=== PATIENT | female | born 1955 | race Caucasian/White ===

== ENCOUNTER 2025-02-28 08:56 | Outpatient (CLI) | payer MEDICARE, MEDICAID, SELFPAY ==
[2025-02-28 09:19] LABS: Hematocrit 31.8 % (37.0-47.0); Hemoglobin 9.7 g/dL (12.2-16.2); Immature Granulocytes % 0.2 %; Mean Corpuscular HGB Conc 30.5 g/dL (31.8-35.4); Mean Corpuscular Hemoglobin 28.3 pg (27.0-31.2); Mean Corpuscular Volume 92.7 fl (81-99); Nucleated Red Blood Cells % 0 %; Platelet Count 68 K/mm3 (142-424); Red Blood Count 3.43 M/mm3 (4.20-5.40); Red Cell Distribution Width-SD 61.1 fL; White Blood Count 4.5 K/mm3 (4.8-10.8)
[2025-02-28 09:47] LABS: Albumin Level 3.1 g/dl (3.5-5.0); Chloride 102 mmol/L (98-107); Potassium 3.6 mmoL/L (3.5-5.1); Sodium 139 mmol/L (136-145)
[2025-02-28 09:49] LABS: Alanine Aminotransferase 16 U/L (12-78); Aspartate Amino Transferase 43 U/L (14-36); Blood Urea Nitrogen 15 mg/dl (7-17); Creatinine,Serum 0.70 mg/dl (0.52-1.04); Estimated Glomerular Filt Rate 82 ml/min (>60); GFR (African American) 100 ML/MIN (>60)
[2025-02-28 09:50] LABS: Albumin/Globulin Ratio 1.1 (1.1-1.8); Alkaline Phosphatase 140 U/L (38-126); Anion Gap 8.6 mEq/L (5-15); Bilirubin,Total 0.4 mg/dl (0.2-1.3); Calcium 8.7 mg/dl (8.4-10.2); Carbon Dioxide 32 mmol/L (22.0-30.0); Cholesterol 117 mg/dl (140-200); Globulin 2.9 g/dL (1.3-3.2); Glucose 96 mg/dl (74-100); HDL Cholesterol 68 mg/dl (40-60); Total Protein,Serum 6.0 g/dl (6.3-8.2); Triglycerides 43 mg/dl (30-150)
[2025-02-28 10:20] LABS: Thyroid Stimulating Hormone 3.93 uIU/mL (0.465-4.68)
== END 2025-02-28 23:59 | disposition home or self-care (01) ==
PROVIDERS: PCP Family Medicine; Visit Provider Family Medicine
DX: E03.9 Hypothyroidism, unspecified (principal); E44.0 Moderate protein-calorie malnutrition; D64.9 Anemia, unspecified; E78.5 Hyperlipidemia, unspecified; D50.9 Iron deficiency anemia, unspecified
CPT/HCPCS: 36415; 80053; 80061; 84443; 85025

== ENCOUNTER 2025-04-06 17:15 | Emergency (ER) | payer MEDICARE, MEDICAID, SELFPAY ==
[2025-04-06] VITALS (9 sets, daily range): BP systolic 137–162; BP diastolic 68–98; PULSE 71–84; RESP 18; TEMP 36.8; O2SAT 87–100; BMI 28.3
--- NOTE | 2025-04-06 17:34 | ED_ITS ---
<Statement entered by Shelby Veras DO - 04/07/25 00:31> I was consulted by the MARY, and we discussed the complexity of problems being addressed. I approve the treatment and management plan for this patient's care in the emergency department, thus performing a substantial portion of the medical decision making. Shelby Veras DO Discharge Plan Disposition Patient Disposition: Home, Self-Care Condition: Good Prescriptions Prescriptions: No Action albuterol sulfate 2.5 mg /3 mL (0.083 %) solution for nebulization 2.5 mg inhalation Q4H PRN (Reason: dysnpea) ketotifen fumarate 0.025 % (0.035 %) drops 1 drp ophthalmic (eye) QID meloxicam 15 mg tablet 15 mg PO DAILY ondansetron HCl 4 mg tablet 4 mg PO Q6H PRN (Reason: nausea and vomiting) calcium carbonate 600 mg calcium (1,500 mg) tablet 600 mg PO DAILY methocarbamol 750 mg tablet 750 mg PO TID PRN (Reason: muscle spasm) pantoprazole 40 mg tablet,delayed release (DR/EC) 40 mg PO DAILY ferrous sulfate 325 mg (65 mg iron) tablet 325 mg PO DAILY docusate sodium 100 mg capsule 100 mg PO BID montelukast 10 mg tablet 10 mg PO DAILY cholecalciferol (vitamin D3) 125 mcg (5,000 unit) capsule 125 mcg PO DAILY escitalopram oxalate 10 mg tablet 10 mg PO DAILY lactulose 10 gram/15 mL solution 30 ml PO DAILY PRN (Reason: constipation) acetaminophen 325 mg capsule 650 mg PO QID PRN (Reason: Pain (Scale Score 1-3)) budesonide-formoterol 160-4.5 mcg/actuation HFA aerosol inhaler 2 puff inhalation BID diclofenac sodium 1 % gel 2 g topical BID levothyroxine 75 mcg capsule 75 mcg PO DAILY melatonin 5 mg capsule 5 mg PO QHS mirabegron [Myrbetriq] 25 mg tablet extended release 24 hr 25 mg PO DAILY potassium chloride [K-Tab] 20 mEq tablet extended release 20 meq PO BID Movantik 25 mg tablet 25 mg PO DAILY Rx Instructions: must be taken on empty stomach; no food 1 hr after or 2-3 hrs before dose tiotropium-olodaterol 2.5-2.5 mcg/actuation mist 2 puff inhalation DAILY fluticasone propionate 50 mcg/actuation spray,suspension 1 spray intranasal DAILY Rx Instructions: administer into each nostril gabapentin 400 mg capsule 400 mg PO TID Qty: 90 5RF Eliquis 5 mg tablet 10 mg PO BID Qty: 30 0RF Quviviq 25 mg tablet 25 mg PO HS Qty: 30 5RF hydroxyzine HCl 25 mg tablet 25 mg PO TID Qty: 90 0RF oxycodone-acetaminophen 10-325 mg tablet 1 tab PO Q6H Qty: 120 0RF ketotifen fumarate 0.025 % (0.035 %) drops 1 drp Eye-Both QID diclofenac sodium 1 % gel 1 ea TOPICAL BID Referrals Follow up/Referrals: Darren Dickerson MD [Physician, Ear, Nose, Throat] - See instructions Provider,MD Mojgan [Referring, Medical] - See instructions Activity Restrictions/Add. Instructions Additional Instructions/Restrictions: You need to follow-up with the ENT doctor or a primary care provider in 2 to 3 days to remove the packing. Please call them to schedule an appointment you can have your nursing facility help with this. Return to the emergency department if you continue to have severe bleeding despite the packing. Follow-up on your ultrasound so that way if you do not have a deep vein clot you can discontinue your anticoagulation. Clinical Impressions Clinical Impression: Epistaxis Instructions Patient Instructions: DI for Nosebleed Print Language Print Language: Russian Discharge ED Provider: Shelby Veras General Adult HPI <REYNA Benedict - Last Filed: 04/06/25 19:01> General Chief complaint: Epistaxis Stated complaint: Nosebleed Time Seen by Provider: 04/06/25 17:18 Mode of Arrival: EMS Source of Information: Patient and EMS Description of Symptoms (Recalled from ER Triage Doc. by RN): angelica presents to ED via EMS for epistaxis that started around 1400 today. Patient started eliquis for DVT prophylaxis yesterday. History of Present Illness HPI narrative: 69-year-old female presents the emergency department via EMS from long term facility for epistaxis. Epistaxis started at 1400 today, cannot get controlled. Patient upon arrival is on 2 to 3 L nasal cannula, which is chronic for her, no epistaxis currently at the bedside per my examination. Patient of note, and upon after nursing, chart review patient was recently started on Eliquis therapy for DVT, noticed some left lower extremity swelling and pain with difficulty ambulating for the last 2 days, started Eliquis yesterday concern for DVT, had outpatient duplex ultrasound to rule out DVT, however radiology report is not available for my direct interrogation. Patient denies any trauma or injury per history, denies any fever chills cough, congestion, denies any chest pain, does endorse some worsening shortness of breath especially with exertion over the last couple of days, denies any abdominal pain, does have nausea, denies any vomiting, denies any constipation or diarrhea, denies urinary type symptomatology, patient is a former smoker, denies any other alcohol or drug use, other past medical history is consistent with HFpEF, CAD, history of cervico, thoraco lumbar fusion, OAB, history of colon resection, COPD, anxiety, diabetic polyneuropathy, cirrhosis, osteoarthritis, GERD, anemia, hypertension, MDD/PO, hypothyroidism. Initial triage vitals are unremarkable on 2 L nasal cannula which is patient's baseline. Please note that above description of symptoms, in this electronic medical record under categorization of recalled from ER triage doctor by RN are reflective of an initial nursing assessment, however, is not reflective of my full history and physical exam that was personally taken and clarified. Consequentially, this preceding description of symptoms, which may include the patient's categorized chief complaint in the EMR, do not reflect my personal clinical impression, and the ultimate description of history of present illness and patient stated complaints should be deferred to this section of the note. Unless stated otherwise or congruent with this section of the note, additional signs, symptoms, or incongruence should be interpreted as inaccurate with my clinical impression. Onset (ago): day(s) Related Data Home Medications ?Medication ?Instructions ?Recorded ?Confirmed acetaminophen 325 mg capsule 650 mg PO QID PRN Pain (S radha 03/07/25 04/06/25 Score 1-3) albuterol sulfate 2.5 mg/3 mL 2.5 mg inhalation Q4H AL N dysnpea 03/07/25 04/06/25 (0.083 %) solution for nebulization budesonide-formoterol HFA 160 2 puff inhalation BID 04/06/25 mcg-4.5 mcg/actuation aerosol inhaler calcium carbonate 600 mg PO DAILY 03/07/2507/31 cholecalciferol (vitamin D3) 125 125 mcg PO DAILY 07/3104/06/25 mcg (5,000 unit) capsule diclofenac sodium 1 % topical gel 2 g topical BID 07/3104/06/25 docusate sodium 100 mg capsule 100 mg PO BID 03/07/25 04/06/25 escitalopram oxalate 10 mg tablet 10 mg PO DAILY 03/0704/06/25 ferrous sulfate 325 mg (65 mg 325 mg PO DAILY 03/07/25 04/06/25 iron) tablet ketotifen fumarate 0.025 % (0.035 1 drp ophthalmic (ey e) QID 03/07/25 04/06/25 %) eye drops lactulose 10 gram/15 mL oral 30 ml PO DAILY PRN consti pation 03/07/25 04/06/25 solution levothyroxine 75 mcg capsule 75 mcg PO DAILY 03/07/25 04/06/25 melatonin 5 mg capsule 5 mg PO QHS 03/07/25 5 meloxicam 15 mg tablet 15 mg PO DAILY 03/07/2507/31 methocarbamol 750 mg tablet 750 mg PO TID PRN muscle s pasm 03/07/25 04/06/25 mirabegron 25 mg tablet,extended 25 mg PO DAILY 04/06/25 release 24 hr (Myrbetriq) montelukast 10 mg tablet 10 mg PO DAILY 03/07/2507/31 naloxegol 25 mg tablet (Movantik) 25 mg PO DAILY 03/0704/06/25 ondansetron HCl 4 mg tablet 4 mg PO Q6H PRN nausea and vomiting 03/07/25 04/06/25 pantoprazole 40 mg tablet,delayed 40 mg PO DAILY 03/0704/06/25 release potassium chloride 20 mEq 20 meq PO BID 03/07/2504/06 tablet,extended release (K-Tab) tiotropium 2.5 mcg-olodaterol 2.5 2 puff inhalation DA JUANITA 03/07/25 04/06/25 mcg/actuation mist for inhalation fluticasone propionate 50 1 spray intranasal DAILY 04/06/25 mcg/actuation nasal spray,suspension diclofenac sodium 1 % topical gel 1 ea topical BID 07/3104/06/25 ketotifen fumarate 0.025 % (0.035 1 drp Eye-Both QID 1 04/06/25 %) eye drops Previous Rx's ?Medication ?Instructions ?Recorded daridorexant 25 mg tablet (Quviviq) 25 mg PO HS #30 ta bs 03/08/25 hydroxyzine HCl 25 mg tablet 25 mg PO TID #90 tabs 08/31 oxycodone-acetaminophen 10 mg-325 1 tab PO Q6H #120 ta bs 03/25/25 mg tablet apixaban 5 mg tablet (Eliquis) 10 mg (2 x 5 mg) PO BID #30 tabs 04/05/25 gabapentin 400 mg capsule 400 mg PO TID #90 caps 04/05 Allergies Allergy/AdvReac Type Severity Reaction Status Date / Time ciprofloxacin Allergy Verified 03/07/25 20:49 levofloxacin Allergy Verified 03/07/25 20:49 phenazopyridine (From Allergy Verified 03/07/25 20:49 Pyridium) tetracycline Allergy Verified 02/28/25 12:43 Adhesive bandage Allergy Uncoded 03/07/25 20:49 PFS <REYNA Benedict - Last Filed: 04/06/25 19:01> [facility] Disclaimer: The information contained in this section may have been updated after the patient was seen, as this information can be updated by other users. Medical History (Updated 04/06/25 @ 21:00 by Shelby Veras DO) Peripheral neuropathy Thrombocytopenia (HFpEF) heart failure with preserved ejection fraction Splenomegaly Metabolic dysfunction-associated steatohepatitis (MASH) Coronary artery disease Overactive bladder Abdominal wall hernia Esophageal varices Congestive heart failure Hepatitis C COPD (chronic obstructive pulmonary disease) Alteration in physical mobility Low back pain Polyneuropathy Anxiety Cirrhosis Osteoarthritis Insomnia GERD (gastroesophageal reflux disease) Anemia Hypertension Vitamin D deficiency Depression Allergic rhinitis Hypothyroidism Constipation Surgical History History of left knee replacement History of fusion of thoracolumbar spine History of colon resection Previous back surgery History of section Status post right knee replacement History of cholecystectomy H/O: hysterectomy Social History Smoking Status: Former smoker alcohol intake: never current occupational status: retired Travel in the last 8 weeks?: None housing: long term marital status: Have you lived/traveled outside [place] in past 30 days?: No Contact w/someone who lives/traveled outside [place] past 30 days?: No Exposure to someone with infectious disease in past 14 days?: No Do you have a fever (greater than 100.4 F or 38 C)?: No Have you tested positive for COVID-19?: No Exposed to someone with COVID-19 in past 14 days?: No Do you have a sore throat?: No Do you have a cough?: No Do you have any weakness?: No Do you have any diarrhea?: No Are you experiencing any unusual bleeding?: No Do you have any muscle aches/pain?: No Do you have any abdominal pain?: No Are you experiencing loss of taste or smell?: No Other Medical History Have you received the Pneumonia Vaccine: Yes <REYNA Benedict - Last Filed: 04/06/25 19:01> ROS Obtained: Yes All systems reviewed & no additional complaints except as documented <Shelby Veras DO - Last Filed: 04/07/25 00:31> ROS Obtained: Yes All systems reviewed & no additional complaints except as documented and Yes Systems reviewed as appropriate & no additional complaints except as documented Physical Exam <REYNA Benedict - Last Filed: 04/06/25 19:01> General General appearance: alert, in no apparent distress and obese Comment: Chronically ill-appearing female obese female Head Head exam: atraumatic and normocephalic Eye Eye exam: Present PERRL and EOMI ENT ENT exam: Present mucous membranes moist Neck Neck exam: Present normal inspection Chest Chest inspection: Present normal inspection and symmetric chest wall rise Respiratory Respiratory exam: Present normal lung sounds bilaterally; Absent respiratory distress, wheezes or stridor Cardiovascular Cardiovascular exam: Present regular rate and normal rhythm Abdominal Exam Abdominal exam: Present soft; Absent tenderness, guarding, rebound or rigidity Extremities Exam Extremities exam: Present normal inspection Neurological Exam Neurological exam: Present alert and oriented X3 Psychiatric Psychiatric exam: Present normal affect Skin Skin exam: Present warm, dry and other (Some lower extremity nonpitting edema is noted of the left leg with some pain to palpation to the posterior calf region/positive Homans' sign, no evidence of phlegmasia, no erythema, otherwise neurovasc intact) Medical Decision Making <REYNA Benedict - Last Filed: 04/06/25 19:01> Medical Records Medical records reviewed: Yes I reviewed the patient's medical records. Screening: Per USPSTF and CDC recommendations, given the prevalence of disease in our region, it is our hospital?s policy to screen for HIV and viral Hepatitis for all patients aged 18 and over and those with ongoing risk factors. Tim Inquiry Pt receiving controlled substance: No Tim was queried for this patient: No Vital Signs: 04/06/25 17:23 04/06/25 19:01 04/06/25 20:00 Temperature 98.2 F Temperature Source Oral Pulse Rate 82 76 Pulse Rate [Right Radial] 79 Respiratory Rate 18 Blood Pressure 140/68 137/81 Blood Pressure [Right Arm] 158/98 H Blood Pressure Mean 119 99 Blood Pressure Mean [Right Arm] 118 Blood Pressure Source [Right Arm] Automatic Cuff Blood Pressure Position [Right Arm] Sitting 02 Sat by Pulse Oximetry 98 96 94 L Oxygen Delivery Method Nasal Cannula Simple Mask Simple Mask Oxygen Flow Rate (LPM) 2 2 2 04/06/25 20:30 Temperature Temperature Source Pulse Rate 71 Pulse Rate [Right Radial] Respiratory Rate Blood Pressure 149/84 H Blood Pressure [Right Arm] Blood Pressure Mean 95 Blood Pressure Mean [Right Arm] Blood Pressure Source [Right Arm] Blood Pressure Position [Right Arm] 02 Sat by Pulse Oximetry 87 L Oxygen Delivery Method Simple Mask Oxygen Flow Rate (LPM) 2 Lab Data Lab results reviewed: Yes I reviewed the patient's lab results. Lab Results 04/06/25 18:01: WBC 5.5, RBC 3.44 L, Hgb 9.8 L, Hct 31.6 L, MCV 91.9, MCH 28.5, MCHC 31.0 L, RDW 15.2, Plt Count 88 L, MPV 10.2, Neut % (Auto) 63.3, Lymph % (Auto) 17.3, [place] % (Auto) 8.2, Eos % (Auto) 9.5, Baso % (Auto) 1.3, Neut # (Auto) 3.5, Lymph # (Auto) 1.0, [place] # (Auto) 0.5, Eos # (Auto) 0.5 H, Baso # (Auto) 0.1, PT 12.2, INR 1.11 H, Sodium 139, Potassium 3.9, Chloride 100, Carbon Dioxide 35 H, Anion Gap 7.9, BUN 14, Creatinine 0.90, Estimated Creat Clear 57, Estimated GFR 62, Est GFR ( Amer) 75, Glucose 78, Calcium 8.5, Total Bilirubin 0.7, AST 39 H, ALT 18, Alkaline Phosphatase 149 H, Troponin I < 0.01, NT-Pro-B Natriuret Pep 492 H, Total Protein 6.1 L, Albumin 3.3 L, Globulin 2.8, Albumin/Globulin Ratio 1.2 04/06/25 18:01 04/06/25 18:01 Orders (Tests/Meds): ED MEDICATIONS Discontinued Medications Generic Name Dose Route Start Last Admin Trade Name Freq PRN Reason Stop Dose Admin Tranexamic Acid 1,000 mg/ 260 mls @ 32.5 mls/hr 04/06/25 20:37 Sodium Chloride TP 04/06/25 20:38 ONCE ONE Iopamidol 80 ml 04/06/25 18:42 04/06/25 18:45 Iopamidol-370 (76%);100ml Bottle IV 04/06/25 18:43 80 ml ONCE ONE Administration Oxycodone/Acetaminophen 1 each 04/06/25 18:19 04/06/25 18:24 Oxycodone 10mg W/Apap 325mg Tablet PO 04/06/25 18:20 1 each ONCE ONE Administration Oxymetazoline HCl 1 ml 04/06/25 18:12 04/06/25 18:24 Oxymetazoline Nasal [place] 0.05% 15ml NS 04/06/25 18:13 1 ml ONCE ONE Administration Oxymetazoline HCl 0 ml 04/06/25 19:18 04/06/25 19:30 Oxymetazoline Nasal [place] 0.05% 15ml NS 04/06/25 19:19 Not Given ONCE ONE Oxymetazoline HCl 1 ml 04/06/25 19:29 04/06/25 19:31 Oxymetazoline Nasal [place] 0.05% 15ml NS 04/06/25 19:30 1 ml ONCE ONE Administration Promethazine HCl 12.5 mg 04/06/25 17:32 04/06/25 18:15 Promethazine Hcl 25mg/Ml 1ml Vial IV 04/06/25 17:33 12.5 mg ONCE ONE Administration Sodium Chloride 25 ml 04/06/25 17:32 04/06/25 18:15 Sodium Chloride 0.9% 25ml Bag IV 04/06/25 17:33 25 ml ONCE ONE Administration Sodium Chloride 10 ml 04/06/25 18:42 04/06/25 18:45 Sodium Chloride 0.9% 10ml Syr (Rad Only) IV 04/06/25 18:43 10 ml ONCE ONE Administration Sodium Chloride 50 ml 04/06/25 18:42 04/06/25 18:45 0.9 % Sodium Chloride 50 Ml Vial IV 04/06/25 18:43 50 ml ONCE ONE Administration Tranexamic Acid 1,000 mg 04/06/25 21:19 04/06/25 20:25 Tranexamic Acid 1,000 Mg/10 Ml Vial IVP 04/06/25 21:20 1,000 mg ONCE ONE Administration ORDERS Category Date Time Status CT angio chest PE protocol Stat Cat Scan 04/06/25 18:13 Completed POCUS Point of Care (ER Only) Stat Exams 04/06/25 17:43 Completed Complete Blood Count Auto Diff Stat Lab 04/06/25 18:01 Completed Comprehensive Metabolic Panel Stat Lab 04/06/25 18:01 Completed NT Pro Brain Natriuretic Pep. Stat Lab 04/06/25 18:01 Completed PT INR [Prothrombin Time INR] Stat Lab 04/06/25 18:01 Completed Troponin I Stat Lab 04/06/25 18:01 Completed Medical Decision Narrative: 69-year-old female presents to the emergency department with active epistaxis and left lower extremity edema and pain for 2 days as well as JORDAN, differential diagnose include but not limited to PE, cardiac arrhythmia, electrolyte disturbance, DVT, dependent edema, CHF/abrasion, anterior epistaxis, posterior epistaxis lymphedema among others. I discussed this patient's case with the attending physician Dr. Veras she saw and examined the patient as well. Will obtain basic laboratory studies, troponin, proBNP, PT/INR, EKG, and will give 12.5 mg IV Phenergan, and will POCUS the patient's left lower extremity. Also obtain CTA chest without contrast PE protocol, and will give 1 spray of Afrin nasal spray here in the emergency department for epistaxis, even though there is no active epistaxis at the bedside per my exam, patient states it is going down the back of my throat making me nauseous . Will also have the patient sit up, utilize nose clamp, and give her 10 mg p.o. Percocet that is her at home/long term dose that she states is due at 6 . CBC is notable for hemoglobin of 9.8, hematocrit 31.6 in line with patient's baseline, which once again is improved outside of the patient's baseline. Otherwise unremarkable CBC CMP is notable for minimal AST elevation at 39, minimal ALP elevation of 149, otherwise unremarkable. Coags within normal limit I discussed this patient's case with Dr. Veras at shift change, she will be assuming the patient's care/workup disposition will be CTA chest radiology report/clinical reevaluation <Shelby Veras, DO - Last Filed: 04/07/25 00:31> Vital Signs: 04/06/25 17:23 04/06/25 19:01 04/06/25 20:00 Temperature 98.2 F Temperature Source Oral Pulse Rate 82 76 Pulse Rate [Right Radial] 79 Respiratory Rate 18 Blood Pressure 140/68 137/81 Blood Pressure [Right Arm] 158/98 H Blood Pressure Mean 119 99 Blood Pressure Mean [Right Arm] 118 Blood Pressure Source [Right Arm] Automatic Cuff Blood Pressure Position [Right Arm] Sitting 02 Sat by Pulse Oximetry 98 96 94 L Oxygen Delivery Method Nasal Cannula Simple Mask Simple Mask Oxygen Flow Rate (LPM) 2 2 2 04/06/25 20:30 Temperature Temperature Source Pulse Rate 71 Pulse Rate [Right Radial] Respiratory Rate Blood Pressure 149/84 H Blood Pressure [Right Arm] Blood Pressure Mean 95 Blood Pressure Mean [Right Arm] Blood Pressure Source [Right Arm] Blood Pressure Position [Right Arm] 02 Sat by Pulse Oximetry 87 L Oxygen Delivery Method Simple Mask Oxygen Flow Rate (LPM) 2 Lab Data Lab Results 04/06/25 18:01: WBC 5.5, RBC 3.44 L, Hgb 9.8 L, Hct 31.6 L, MCV 91.9, MCH 28.5, MCHC 31.0 L, RDW 15.2, Plt Count 88 L, MPV 10.2, Neut % (Auto) 63.3, Lymph % (Auto) 17.3, [place] % (Auto) 8.2, Eos % (Auto) 9.5, Baso % (Auto) 1.3, Neut # (Auto) 3.5, Lymph # (Auto) 1.0, [place] # (Auto) 0.5, Eos # (Auto) 0.5 H, Baso # (Auto) 0.1, PT 12.2, INR 1.11 H, Sodium 139, Potassium 3.9, Chloride 100, Carbon Dioxide 35 H, Anion Gap 7.9, BUN 14, Creatinine 0.90, Estimated Creat Clear 57, Estimated GFR 62, Est GFR ( Amer) 75, Glucose 78, Calcium 8.5, Total Bilirubin 0.7, AST 39 H, ALT 18, Alkaline Phosphatase 149 H, Troponin I < 0.01, NT-Pro-B Natriuret Pep 492 H, Total Protein 6.1 L, Albumin 3.3 L, Globulin 2.8, Albumin/Globulin Ratio 1.2 Orders (Tests/Meds): ED MEDICATIONS Discontinued Medications Generic Name Dose Route Start Last Admin Trade Name Freq PRN Reason Stop Dose Admin Tranexamic Acid 1,000 mg/ 260 mls @ 32.5 mls/hr 04/06/25 20:37 Sodium Chloride TP 04/06/25 20:38 ONCE ONE Iopamidol 80 ml 04/06/25 18:42 04/06/25 18:45 Iopamidol-370 (76%);100ml Bottle IV 04/06/25 18:43 80 ml ONCE ONE Administration Oxycodone/Acetaminophen 1 each 04/06/25 18:19 04/06/25 18:24 Oxycodone 10mg W/Apap 325mg Tablet PO 04/06/25 18:20 1 each ONCE ONE Administration Oxymetazoline HCl 1 ml 04/06/25 18:12 04/06/25 18:24 Oxymetazoline Nasal [place] 0.05% 15ml NS 04/06/25 18:13 1 ml ONCE ONE Administration Oxymetazoline HCl 0 ml 04/06/25 19:18 04/06/25 19:30 Oxymetazoline Nasal [place] 0.05% 15ml NS 04/06/25 19:19 Not Given ONCE ONE Oxymetazoline HCl 1 ml 04/06/25 19:29 04/06/25 19:31 Oxymetazoline Nasal [place] 0.05% 15ml NS 04/06/25 19:30 1 ml ONCE ONE Administration Promethazine HCl 12.5 mg 04/06/25 17:32 04/06/25 18:15 Promethazine Hcl 25mg/Ml 1ml Vial IV 04/06/25 17:33 12.5 mg ONCE ONE Administration Sodium Chloride 25 ml 04/06/25 17:32 04/06/25 18:15 Sodium Chloride 0.9% 25ml Bag IV 04/06/25 17:33 25 ml ONCE ONE Administration Sodium Chloride 10 ml 04/06/25 18:42 04/06/25 18:45 Sodium Chloride 0.9% 10ml Syr (Rad Only) IV 04/06/25 18:43 10 ml ONCE ONE Administration Sodium Chloride 50 ml 04/06/25 18:42 04/06/25 18:45 0.9 % Sodium Chloride 50 Ml Vial IV 04/06/25 18:43 50 ml ONCE ONE Administration Tranexamic Acid 1,000 mg 04/06/25 21:19 04/06/25 20:25 Tranexamic Acid 1,000 Mg/10 Ml Vial IVP 04/06/25 21:20 1,000 mg ONCE ONE Administration ORDERS Category Date Time Status CT angio chest PE protocol Stat Cat Scan 04/06/25 18:13 Completed POCUS Point of Care (ER Only) Stat Exams 04/06/25 17:43 Completed Complete Blood Count Auto Diff Stat Lab 04/06/25 18:01 Completed Comprehensive Metabolic Panel Stat Lab 04/06/25 18:01 Completed NT Pro Brain Natriuretic Pep. Stat Lab 04/06/25 18:01 Completed PT INR [Prothrombin Time INR] Stat Lab 04/06/25 18:01 Completed Troponin I Stat Lab 04/06/25 18:01 Completed Medical Decision Narrative: 69-year-old female presents to the emergency department with active epistaxis and left lower extremity edema and pain for 2 days as well as JORDAN, differential diagnose include but not limited to PE, cardiac arrhythmia, electrolyte disturbance, DVT, dependent edema, CHF/abrasion, anterior epistaxis, posterior epistaxis lymphedema among others. I discussed this patient's case with the attending physician Dr. Veras she saw and examined the patient as well. Will obtain basic laboratory studies, troponin, proBNP, PT/INR, EKG, and will give 12.5 mg IV Phenergan, and will POCUS the patient's left lower extremity. Also obtain CTA chest without contrast PE protocol, and will give 1 spray of Afrin nasal spray here in the emergency department for epistaxis, even though there is no active epistaxis at the bedside per my exam, patient states it is going down the back of my throat making me nauseous . Will also have the patient sit up, utilize nose clamp, and give her 10 mg p.o. Percocet that is her at home/long term dose that she states is due at 6 . CBC is notable for hemoglobin of 9.8, hematocrit 31.6 in line with patient's baseline, which once again is improved outside of the patient's baseline. Otherwise unremarkable CBC CMP is notable for minimal AST elevation at 39, minimal ALP elevation of 149, otherwise unremarkable. Coags within normal limit I discussed this patient's case with Dr. Veras at shift change, she will be assuming the patient's care/workup disposition will be CTA chest radiology report/clinical reevaluation. Shleby Veras DO I assumed care of the patient at 1900. Patient's troponin was less than 0.01. Bedside ultrasound was performed to evaluate for DVT in the left lower extremity, is equivocal at this time. There were some superficial blood clot seen, and no definitive femoral blood clot. CT of the chest was reviewed and interpreted by myself and showed no pulmonary embolism. Patient was told to blow all the blood clots and then a nose plug was placed for bleeding. On repeat assessment, patient was still bleeding therefore patient was given Afrin and nose plug was replaced. On further reassessment, patient was still bleeding, no posterior oropharynx bleeding to suggest posterior bleed. A Rhino Rocket was placed with TXA which improved patient's bleeding patient had no continued bleeding in the emergency department. At this time I felt the patient was appropriate and stable for discharge home. Was recommended to continue her Eliquis as prescribed for concern for possible DVT until her ultrasound comes back. Was recommended to follow-up with ENT or her primary care provider in 2 to 3 days for removal of nose packing. Patient was otherwise discharged home in stable condition. Procedures <Shelby Veras DO - Last Filed: 04/07/25 00:31> Epistaxis Control Time Out Performed: No Nostril: left Nose Prepped With: oxymetazoline Direct Inspection: yes Clots Removed by: blowing nose Cautery Used: none Device Inserted: other (rhino rocket) Patient Tolerated Procedure: well Critical Care <REYNA Benedict - Last Filed: 04/06/25 19:01> Critical Care Time Critical Care Time: No
--- NOTE | 2025-04-06 17:38 | ECG_ITS ---
APPROVED REPORT Exam: Resting ECG HR:78 bpm ECG Measurements Heart Rate 78 AXES CO 158 P 49 QRSd 86 QRS 13 QT 365 T 27 QTc 398 Conclusion EKG showed normal sinus rhythm without acute ST or T wave changes concerning for ischemia Electronically signed by : Shelby Veras, 04/07/2025 01:58:16
[2025-04-06 18:13] LABS: Hematocrit 31.6 % (37.0-47.0); Hemoglobin 9.8 g/dL (12.2-16.2); Immature Granulocytes % 0.4 %; Mean Corpuscular HGB Conc 31.0 g/dL (31.8-35.4); Mean Corpuscular Hemoglobin 28.5 pg (27.0-31.2); Mean Corpuscular Volume 91.9 fl (81-99); Nucleated Red Blood Cells % 0 %; Platelet Count 88 K/mm3 (142-424); Red Blood Count 3.44 M/mm3 (4.20-5.40); Red Cell Distribution Width-SD 50.4 fL; White Blood Count 5.5 K/mm3 (4.8-10.8)
--- NOTE | 2025-04-06 18:13 | CT_ITS ---
PROCEDURE INFORMATION: Exam: CTA Chest With Contrast Exam date and time: 04/06/2025 6:44 PM Age: 69 years old Clinical indication: Shortness of breath; Additional info: SOA TECHNIQUE: Imaging protocol: Computed tomographic angiography of the chest with contrast. Exam focused on the arteries. 3D rendering (Not supervised by radiologist): MIP and/or 3D reconstructed images were created by the technologist. Radiation optimization: All CT scans at this facility use at least one of these dose optimization techniques: automated exposure control; mA and/or kV adjustment per patient size (includes targeted exams where dose is matched to clinical indication); or iterative reconstruction. Contrast material: ISOVUE; Contrast volume: 80 ml; Contrast route: INTRAVENOUS (IV); COMPARISON: No relevant prior studies available. FINDINGS: Pulmonary arteries: No CT angiography evidence of pulmonary embolism. Aorta: There is moderate calcific atherosclerotic disease of the thoracic aorta without aneurysmal dilatation. Lungs: Mild peribronchial edema, scattered airspace opacities with bilateral hilar and mediastinal reactive lymph nodes favors viral process versus reactive airways without consolidation. Pleural spaces: Unremarkable. No pneumothorax. No pleural effusion. Heart: Unremarkable. No cardiomegaly. No pericardial effusion. Lymph nodes: See Lungs finding. Liver: Nodular contours of the liver compatible with cirrhosis. Bones/joints: Multiple anterior left healing rib fractures. Postsurgical changes compatible with posterior fusion with transpedicular screws, and vertical stabilizing bars between levels T9 through L2 with intervertebral spacer at T12 stabilizing T12 compression fracture. Soft tissues: Unremarkable. IMPRESSION: 1. Mild peribronchial edema, scattered airspace opacities with bilateral hilar and mediastinal reactive lymph nodes favors viral process versus reactive airways without consolidation. Right lower lobe calcified nodule compatible with prior granulomatous process. 2. Nodular contours of the liver compatible with cirrhosis. 3. No CT angiography evidence of pulmonary embolism.
[2025-04-06] MEDS: SODIUM CHLORIDE 0.9% 25ML BAG 25 ML IV (18:15)
[2025-04-06] MEDS: PROMETHAZINE HCL 25MG/ML 1ML VIAL 12.5 MG IV (18:15)
[2025-04-06] MEDS: OXYCODONE 10MG W/APAP 325MG TABLET 1 EACH PO (18:24)
[2025-04-06] MEDS: OXYMETAZOLINE NASAL SPRAY 0.05% 15ML NS ×2 (18:24→19:31)
[2025-04-06 18:25] LABS: Alanine Aminotransferase 18 U/L (12-78); Albumin Level 3.3 g/dl (3.5-5.0); Albumin/Globulin Ratio 1.2 (1.1-1.8); Alkaline Phosphatase 149 U/L (38-126); Anion Gap 7.9 mEq/L (5-15); Aspartate Amino Transferase 39 U/L (14-36); Bilirubin,Total 0.7 mg/dl (0.2-1.3); Blood Urea Nitrogen 14 mg/dl (7-17); Calcium 8.5 mg/dl (8.4-10.2); Carbon Dioxide 35 mmol/L (22.0-30.0); Chloride 100 mmol/L (98-107); Creatinine Clearance Estimated 57 mL/min (50-200); Creatinine,Serum 0.90 mg/dl (0.52-1.04); Estimated Glomerular Filt Rate 62 ml/min (>60); GFR (African American) 75 ML/MIN (>60); Globulin 2.8 g/dL (1.3-3.2); Glucose 78 mg/dl (74-100); Potassium 3.9 mmoL/L (3.5-5.1); Sodium 139 mmol/L (136-145); Total Protein,Serum 6.1 g/dl (6.3-8.2)
--- NOTE | 2025-04-06 18:29 | PC.NURSE ---
1819- Mayo Edward PA-C notified that patient was requesting pain medication because she normally takes some around 1800 in the [facility]. REYNA to order pain medication for the patient 1827- patient instructed to blow nose, afrin administered into each nostril per SEP and nose clamp applied at this time.
[2025-04-06 18:34] LABS: INR 1.11 (0.9-1.1); Prothrombin Time 12.2 seconds (10.1-12.5)
[2025-04-06 18:36] LABS: NT Pro Brain Natriuretic Pep. 492 pg/mL (0-125)
--- NOTE | 2025-04-06 18:40 | PC.NURSE ---
pt to scan
[2025-04-06] MEDS: 0.9 % SODIUM CHLORIDE 50 ML VIAL IV (18:45)
[2025-04-06] MEDS: IOPAMIDOL-370 (76%);100ML BOTTLE 80 ML IV (18:45)
[2025-04-06] MEDS: SODIUM CHLORIDE 0.9% 10ML SYR (RAD ONLY) 10 ML IV (18:45)
[2025-04-06 19:14] LABS: Troponin I < 0.01 ng/ml (0.00-0.034)
--- NOTE | 2025-04-06 19:31 | PC.NURSE ---
nose clamp applied 1929
[2025-04-06] MEDS: TRANEXAMIC ACID 1,000 MG/10 ML VIAL 1000 MG IVP (20:25)
--- NOTE | 2025-04-06 21:36 | PC.NURSE ---
2125- report called to Kaylah PRATT at [facility]
--- NOTE | 2025-04-06 23:32 | PC.NURSE ---
pt placed on bedpan
[2025-04-07 00:01] VITALS: BP 145/76; PULSE 77; O2SAT 100
[2025-04-07 00:30] VITALS: BP 140/77; PULSE 75; O2SAT 100
[2025-04-07 01:00] VITALS: BP 147/90; PULSE 78; O2SAT 100
[2025-04-07 01:30] VITALS: BP 150/80; PULSE 76; O2SAT 100
[2025-04-07 01:55] VITALS: BP 150/80; PULSE 59; RESP 20; TEMP 36.7; O2SAT 97
== END 2025-04-07 01:57 | disposition home or self-care (01) ==
PROVIDERS: Physician Assistant; Emergency Provider Student in an Organized Health Care Education/Training Program; PCP Family Medicine
DX: R04.0 Epistaxis (principal); Z86.718 Personal history of other venous thrombosis and embolism; Z79.01 Long term (current) use of anticoagulants
CPT/HCPCS: 30901; 71275; 80053; 83880; 84484; 85025; 85610; 93005; 96374; 96375; 99284; J2550; Q9967

== ENCOUNTER 2025-04-09 15:01 | Emergency (ER) | payer MEDICARE, MEDICAID, SELFPAY ==
[2025-04-09] VITALS (8 sets, daily range): BP systolic 130–168; BP diastolic 71–103; PULSE 83–89; RESP 18–20; TEMP 36.8; O2SAT 97–100; BMI 35.4
--- NOTE | 2025-04-09 15:07 | CT_ITS ---
PROCEDURE INFORMATION: Exam: CTA Chest With Contrast Exam date and time: 04/09/2025 4:46 PM Age: 69 years old Clinical indication: Shortness of breath; Additional info: SOB, lue swelling, SOB TECHNIQUE: Imaging protocol: Computed tomographic angiography of the chest with contrast. Exam focused on the arteries. 3D rendering (Not supervised by radiologist): MIP and/or 3D reconstructed images were created by the technologist. Radiation optimization: All CT scans at this facility use at least one of these dose optimization techniques: automated exposure control; mA and/or kV adjustment per patient size (includes targeted exams where dose is matched to clinical indication); or iterative reconstruction. Contrast material: ISOVUE; Contrast volume: 80 ml; Contrast route: INTRAVENOUS (IV); COMPARISON: CT ANGIO CHEST PE PROTOCOL 04/06/2025 6:44 PM FINDINGS: Pulmonary arteries: No definite acute pulmonary embolus is identified. The examination was focused on the left upper extremity arteries and there is suboptimal opacification of the pulmonary arteries with opacification of pulmonary veins present limiting the evaluation for pulmonary emboli. Aorta: No thoracic aortic aneurysm or dissection is appreciated. Satisfactory opacification of the great vessels particularly the proximal left subclavian artery which shows mild atherosclerotic plaquing. There is mild atherosclerotic plaquing involving the carotid bulbs bilaterally. Lungs: There are scattered interstitial changes and ground-glass densities within the lungs again demonstrated. Small subpleural bleb formation within the anterior chest is noted bilaterally. There is no large focal area of consolidation appreciated. There is an approximate 7 mm subpleural nodule in the medial right lower lobe again demonstrated. Pleural spaces: Unremarkable. No pneumothorax. No pleural effusion. Heart: Unremarkable. No cardiomegaly. No pericardial effusion. Mild atherosclerotic calcification proximal and mid LAD. Lymph nodes: Small mediastinal and hilar lymph nodes. No dominant adenopathy. Liver: Nodular contour of the liver with recanalization of the umbilical vein suggestive of hepatic cirrhosis. Gallbladder and biliary ducts: Probable absence of the gallbladder. Spleen: 1.4 cm cyst or hemangioma within the spleen. No follow-up required. Bones/joints: Fracture inferior left glenoid rim. Mildly displaced subacute fractures of the anterior left 2nd, 3rd, 4th and 5th ribs. Melo and transpedicular screw stabilization beginning at T9 through the upper lumbar spine with incomplete visualization on the images. T12 right-sided bone prosthesis/spacer. Old posterior lower left rib fractures. Soft tissues: Unremarkable. IMPRESSION: 1. No significant stenosis or occlusion of the left subclavian or axillary artery. Mild atherosclerotic plaquing proximal left subclavian artery. 2. No definite acute pulmonary embolus identified. Suboptimal opacification of the pulmonary arteries as discussed above. 3. Subacute mildly displaced anterior left rib fractures. Fracture of the inferior rim of the left glenoid. 4. Subpleural 7 mm right lower lobe pulmonary nodule.For patients at low risk (minimal or absent history of smoking and of other known risk factors), recommend CT Chest at 6-12 months, then consider CT Chest at 18-24 months. For patients at high risk (history of smoking or of other known risk factors), recommend CT Chest at 6-12 months, then CT Chest at 18-24 months. (Reference: Flo) References: Flo Guardado, et al. Guidelines for Management of Incidental Pulmonary Nodules Detected on CT Images: From the Fleischner Society 2017. Radiology. 2017;284(1):228-243. 5. Other findings above.
--- NOTE | 2025-04-09 15:07 | XR_ITS ---
PROCEDURE INFORMATION: Exam: XR Left Shoulder Exam date and time: 04/09/2025 3:23 PM Age: 69 years old Clinical indication: Pain; Upper arm; Left; Additional info: Pain, bruising left shoulder TECHNIQUE: Imaging protocol: Radiologic exam of the left shoulder. Views: 2 or more views. Total images: 4 COMPARISON: CR XR HUMERUS LT 04/09/2025 3:23 PM FINDINGS: Bones/joints: Question fracture of the proximal humerus. Fracture of the inferior aspect of the glenoid. Bones are osteopenic. No evidence of acute dislocation. Degenerative changes of the glenohumeral and acromioclavicular joints. Narrowing of the acromial humeral distance may be consistent with chronic rotator cuff abnormality. Soft tissues: Moderate soft tissue swelling. IMPRESSION: 1. Question fracture of the proximal humerus. 2. Fracture of the inferior aspect of the glenoid. 3. No evidence of acute dislocation. 4. Moderate soft tissue swelling.
--- NOTE | 2025-04-09 15:07 | CT_ITS ---
PROCEDURE INFORMATION: Exam: CTA Left Upper Extremity With Contrast Exam date and time: 04/09/2025 4:36 PM Age: 69 years old Clinical indication: Swelling; Arm, upper; Left; Additional info: Bruising/swelling lue, possible arterial injury TECHNIQUE: Imaging protocol: Computed tomographic angiography of the left upper extremity with contrast, including non-contrast images if performed. 3D rendering (Not supervised by radiologist): MIP and/or 3D reconstructed images were created by the technologist. Radiation optimization: All CT scans at this facility use at least one of these dose optimization techniques: automated exposure control; mA and/or kV adjustment per patient size (includes targeted exams where dose is matched to clinical indication); or iterative reconstruction. Contrast material: ISOVUE; Contrast volume: 80 ml; Contrast route: INTRAVENOUS (IV); COMPARISON: CT ANGIO CHEST PE PROTOCOL 04/06/2025 6:44 PM FINDINGS: Left subclavian artery: No occlusion or significant stenosis. Axillary artery: No occlusion or significant stenosis. Brachial artery: No occlusion or significant stenosis. Radial artery: No occlusion or significant stenosis proximal forearm. The mid and distal forearm is not included. Ulnar artery: No occlusion or significant stenosis proximal forearm. The mid and distal forearm is not included. Bones/joints: Moderate osteoarthritis left glenohumeral joint. Osteophyte formation left humeral head. There is a comminuted fracture at the inferior rim of the glenoid. There are subacute mildly displaced anterior left rib fractures involving what is felt to be the 3rd, 4th and 5th ribs. Soft tissues: There does appear to be muscular hematoma formations at the posterior left shoulder. There is fluid surrounding the biceps tendon and there is probably a left shoulder joint effusion. There is subcutaneous edema within the left upper extremity. 1.4 cm cyst or hemangioma within the central aspect of the spleen. Exophytic 4.3 cm cyst at the anterolateral cortex of the left kidney with Hounsfield unit measurements of less than 20. No follow-up required. IMPRESSION: 1. No major arterial injury visualized left upper extremity to the level of the proximal forearm. 2. Fracture inferior glenoid and left anterolateral subacute rib fractures. 3. Muscular hematoma formation posterior left shoulder with probable shoulder joint effusion and subcutaneous edema left upper extremity. 4. Other findings above.
--- NOTE | 2025-04-09 15:07 | XR_ITS ---
PROCEDURE INFORMATION: Exam: XR Left Humerus Exam date and time: 04/09/2025 3:23 PM Age: 69 years old Clinical indication: Pain; Upper arm; Left; Additional info: Left humerus pain/bruising TECHNIQUE: Imaging protocol: Radiologic exam of the left humerus. Views: 2 or more views. Total images: 2 COMPARISON: CR XR SHOULDER LT MIN 2V 04/09/2025 3:23 PM FINDINGS: Bones/joints: Question fracture of the proximal humerus. Fracture of the inferior aspect of the glenoid. Bones are osteopenic. No evidence of acute dislocation. Degenerative changes of the glenohumeral and acromioclavicular joints. Narrowing of the acromial humeral distance may be consistent with chronic rotator cuff abnormality. Soft tissues: Moderate soft tissue swelling. IMPRESSION: 1. Question fracture of the proximal humerus. 2. Fracture of the inferior aspect of the glenoid. 3. Bones are osteopenic. 4. Moderate soft tissue swelling. 5. No evidence of acute dislocation. 6. Narrowing of the acromial humeral distance may be consistent with chronic rotator cuff abnormality.
--- NOTE | 2025-04-09 15:10 | HMH.EDGENADL ---
Discharge Plan Disposition Patient Disposition: er [facility] Prescriptions Prescriptions: No Action albuterol sulfate 2.5 mg /3 mL (0.083 %) solution for nebulization 2.5 mg inhalation Q4H PRN (Reason: dysnpea) ketotifen fumarate 0.025 % (0.035 %) drops 1 drp ophthalmic (eye) QID meloxicam 15 mg tablet 15 mg PO DAILY ondansetron HCl 4 mg tablet 4 mg PO Q6H PRN (Reason: nausea and vomiting) calcium carbonate 600 mg calcium (1,500 mg) tablet 600 mg PO DAILY methocarbamol 750 mg tablet 750 mg PO TID PRN (Reason: muscle spasm) pantoprazole 40 mg tablet,delayed release (DR/EC) 40 mg PO DAILY ferrous sulfate 325 mg (65 mg iron) tablet 325 mg PO DAILY docusate sodium 100 mg capsule 100 mg PO BID montelukast 10 mg tablet 10 mg PO DAILY cholecalciferol (vitamin D3) 125 mcg (5,000 unit) capsule 125 mcg PO DAILY escitalopram oxalate 10 mg tablet 10 mg PO DAILY lactulose 10 gram/15 mL solution 30 ml PO DAILY PRN (Reason: constipation) budesonide-formoterol 160-4.5 mcg/actuation HFA aerosol inhaler 2 puff inhalation BID levothyroxine 75 mcg capsule 75 mcg PO DAILY melatonin 5 mg capsule 5 mg PO QHS mirabegron [Myrbetriq] 25 mg tablet extended release 24 hr 25 mg PO DAILY potassium chloride [K-Tab] 20 mEq tablet extended release 20 meq PO BID Movantik 25 mg tablet 25 mg PO DAILY Rx Instructions: must be taken on empty stomach; no food 1 hr after or 2-3 hrs before dose tiotropium-olodaterol 2.5-2.5 mcg/actuation mist 2 puff inhalation DAILY acetaminophen 325 mg capsule 650 mg PO Q8HP PRN (Reason: Pain (Scale Score 1-3)) fluticasone propionate 50 mcg/actuation spray,suspension 1 spray intranasal DAILY Rx Instructions: administer into each nostril gabapentin 400 mg capsule 400 mg PO TID Qty: 90 5RF atorvastatin [Lipitor] 20 mg tablet 20 mg PO HS cetirizine 10 mg tablet 10 mg PO HS loperamide 2 mg tablet 2 mg PO Q8H PRN (Reason: Diarrhea) bumetanide 1 mg tablet 1 mg PO QAM polyethylene glycol 3350 [Miralax] 17 gram/dose powder 17 g PO DAILY cyclosporine [Restasis] 0.05 % dropperette 1 drp Eye-Both Q12H hydrocortisone 2 % gel 1 applic topical .q4 PRN (Reason: Skin Condition) triamcinolone acetonide 0.5 % cream 1 applic topical BID hydroxyzine HCl 25 mg tablet 25 mg PO Q8H PRN (Reason: Itching) Preparation H(pe, witch radha) 0.25-50 % gel 1 applic topical Q6HP PRN (Reason: pain and itching) Qty: 51 0RF Quviviq 25 mg tablet 25 mg PO HS Qty: 30 5RF oxycodone-acetaminophen 10-325 mg tablet 1 tab PO Q6H Qty: 120 0RF diclofenac sodium 1 % gel 1 ea TOPICAL BID Referrals Follow up/Referrals: Juan Carlos Littlejohn DO [Staff Physician, Orthopedics] - See instructions Provider,Referral, MD [Primary Care Provider, Medical] - See instructions Activity Restrictions/Add. Instructions Additional Instructions/Restrictions: You were found to have a fracture of the bottom part of your shoulder joint likely from a bone spur from your arthritis, which explains your bruising and pain. You are being referred to Dr. Littlejohn with orthopedic surgery team for follow-up. Call them next week to schedule a follow-up appointment. You can take Tylenol and ibuprofen to help with pain. Use the sling for comfort. If you develop any new or worsening symptoms, or if you become concerned for your help for any reason, return to the emergency department for evaluation Clinical Impressions Clinical Impression: Glenoid fracture of shoulder Print Language Print Language: Tamazight Discharge ED Provider: Jameson Good Adult HPI General Chief complaint: Extremity Injury, Upper Stated complaint: Upper Extremetity Issue Time Seen by Provider: 04/09/25 15:03 Mode of Arrival: Ambulatory Source of Information: Patient Description of Symptoms (Recalled from ER Triage Doc. by RN): pt is here for bruising, pain and swelling in left upper extremetity that came out of nowhere and showed up yesterday, pt denies any falls or trauma, [facility] [place] [facility] [place], pt was seen here recently for nose bleed and taken off blood thinners History of Present Illness HPI narrative: Gabriella Vogt is a 69-year-old female with past medical history of COPD on 2 L nasal cannula, heart failure with preserved ejection fraction, splenomegaly, thrombocytopenia, hypertension, status post hysterectomy, who [facility] for complaints of left upper extremity bruising and swelling. Patient states that recently she had swelling in both of her lower extremities, left worse than right and had an ultrasound that showed no evidence of blood clot. She was on Eliquis at that time but was taken off of it 2 days ago. She states the following day, she noticed bruising and swelling in her left shoulder and wrist area. She states that she has not had any trauma, falls or IV placements in this area. She does note that she has significant arthritis in her left shoulder that is so severe that she cannot have shoulder replacement. She reports chronic numbness and tingling in her fingers secondary to polyneuropathy from a cervical spine injury in the past that is unchanged from normal. She states that she had an ultrasound of her left upper extremity yesterday that did not show any evidence of DVT and was sent here for MRI of her shoulder. She does report that she has felt more short of breath today than normal especially with exertion. Related Data Home Medications ?Medication ?Instructions ?Recorded ?Confirmed albuterol sulfate 2.5 mg/3 mL 2.5 mg inhalation Q4H PRN dysnpea 03/07/25 04/09/25 (0.083 %) solution for nebulization budesonide-formoterol HFA 160 2 puff inhalation BID 03/07/25 04/09/25 mcg-4.5 mcg/actuation aerosol inhaler calcium carbonate 600 mg PO DAILY 03/07/25 04/09/25 cholecalciferol (vitamin D3) 125 125 mcg PO DAILY 03/07/25 04/09/25 mcg (5,000 unit) capsule docusate sodium 100 mg capsule 100 mg PO BID 03/07/25 04/09/25 escitalopram oxalate 10 mg tablet 10 mg PO DAILY 03/07/25 04/09/25 ferrous sulfate 325 mg (65 mg 325 mg PO DAILY 03/07/25 04/09/25 iron) tablet ketotifen fumarate 0.025 % (0.035 1 drp ophthalmic (eye) QID 03/07/25 04/09/25 %) eye drops lactulose 10 gram/15 mL oral 30 ml PO DAILY PRN constipation 03/07/25 04/09/25 solution levothyroxine 75 mcg capsule 75 mcg PO DAILY 03/07/25 04/09/25 melatonin 5 mg capsule 5 mg PO QHS 03/07/25 04/09/25 meloxicam 15 mg tablet 15 mg PO DAILY 03/07/25 04/09/25 methocarbamol 750 mg tablet 750 mg PO TID PRN muscle spasm 03/07/25 04/09/25 mirabegron 25 mg tablet,extended 25 mg PO DAILY 03/07/25 04/09/25 release 24 hr (Myrbetriq) montelukast 10 mg tablet 10 mg PO DAILY 03/07/25 04/09/25 naloxegol 25 mg tablet (Movantik) 25 mg PO DAILY 03/07/25 04/09/25 ondansetron HCl 4 mg tablet 4 mg PO Q6H PRN nausea and vomiting 03/07/25 04/09/25 pantoprazole 40 mg tablet,delayed 40 mg PO DAILY 03/07/25 04/09/25 release potassium chloride 20 mEq 20 meq PO BID 03/07/25 04/09/25 tablet,extended release (K-Tab) tiotropium 2.5 mcg-olodaterol 2.5 2 puff inhalation DAILY 03/07/25 04/09/25 mcg/actuation mist for inhalation fluticasone propionate 50 1 spray intranasal DAILY 04/05/25 04/09/25 mcg/actuation nasal spray,suspension diclofenac sodium 1 % topical gel 1 ea topical BID 04/06/25 04/09/25 acetaminophen 325 mg capsule 650 mg PO Q8HP PRN Pain (Scale 04/08/25 04/09/25 Score 1-3) atorvastatin 20 mg tablet (Lipitor) 20 mg PO HS 04/08/25 04/09/25 bumetanide 1 mg tablet 1 mg PO QAM 04/08/25 04/09/25 cetirizine 10 mg tablet 10 mg PO HS 04/08/25 04/09/25 cyclosporine 0.05 % eye drops in a 1 drp Eye-Both Q12H 04/08/25 04/09/25 dropperette (Restasis) hydrocortisone 2 % topical gel 1 applic topical .q4 PRN Skin 04/08/25 04/09/25 Condition hydroxyzine HCl 25 mg tablet 25 mg PO Q8H PRN Itching 04/08/25 04/09/25 loperamide 2 mg tablet 2 mg PO Q8H PRN Diarrhea 04/08/25 04/09/25 polyethylene glycol 3350 17 17 g PO DAILY 04/08/25 04/09/25 gram/dose oral powder (Miralax) triamcinolone acetonide 0.5 % 1 applic topical BID 04/08/25 04/09/25 topical cream Previous Rx's ?Medication ?Instructions ?Recorded daridorexant 25 mg tablet (Quviviq) 25 mg PO HS #30 tabs 03/08/25 oxycodone-acetaminophen 10 mg-325 1 tab PO Q6H #120 tabs 03/25/25 mg tablet gabapentin 400 mg capsule 400 mg PO TID #90 caps 04/05/25 phenylephrine-witch radha 0.25 1 applic topical Q6HP PRN pain and 04/08/25 %-50 % topical gel (Preparation H itching #51 grams (phenylephrine,witch radha)) Allergies Allergy/AdvReac Type Severity Reaction Status Date / Time ciprofloxacin Allergy Verified 04/08/25 12:31 levofloxacin Allergy Verified 04/08/25 12:31 phenazopyridine (From Allergy Verified 04/08/25 12:31 Pyridium) tetracycline Allergy Verified 04/08/25 12:31 Adhesive bandage Allergy Uncoded 03/07/25 20:49 PFSH PFSH Disclaimer: The information contained in this section may have been updated after the patient was seen, as this information can be updated by other users. Medical History Peripheral neuropathy Thrombocytopenia (HFpEF) heart failure with preserved ejection fraction Splenomegaly Metabolic dysfunction-associated steatohepatitis (MASH) Coronary artery disease Overactive bladder Abdominal wall hernia Esophageal varices Congestive heart failure Hepatitis C COPD (chronic obstructive pulmonary disease) Alteration in physical mobility Low back pain Polyneuropathy Anxiety Cirrhosis Osteoarthritis Insomnia GERD (gastroesophageal reflux disease) Anemia Hypertension Vitamin D deficiency Depression Allergic rhinitis Hypothyroidism Constipation Surgical History History of left knee replacement History of fusion of thoracolumbar spine History of colon resection Previous back surgery History of section Status post right knee replacement History of cholecystectomy H/O: hysterectomy Social History Smoking Status: Former smoker alcohol intake: never current occupational status: retired Travel in the last 8 weeks?: None housing: [facility] marital status: Have you lived/traveled outside US in past 30 days?: No Contact w/someone who lives/traveled outside US past 30 days?: No Exposure to someone with infectious disease in past 14 days?: No Do you have a fever (greater than 100.4 F or 38 C)?: No Have you tested positive for COVID-19?: No Exposed to someone with COVID-19 in past 14 days?: No Do you have a sore throat?: No Do you have a cough?: No Do you have any weakness?: No Do you have any diarrhea?: No Are you experiencing any unusual bleeding?: No Do you have any muscle aches/pain?: No Do you have any abdominal pain?: No Are you experiencing loss of taste or smell?: No Other Medical History Have you received the Pneumonia Vaccine: Yes (10/01/24) ROS Obtained: Yes Systems reviewed as appropriate & no additional complaints except as documented Physical Exam General General appearance: alert and in no apparent distress Comment: On 2L NC Head Head exam: atraumatic Eye Eye exam: Present normal appearance ENT ENT exam: Present normal external ear exam Neck Neck exam: Present full ROM Chest Chest inspection: Present symmetric chest wall rise Respiratory Respiratory exam: Present normal lung sounds bilaterally and wheezes (mild end expiratory wheezing bilaterallky); Absent respiratory distress Cardiovascular Cardiovascular exam: Present regular rate and normal rhythm Abdominal Exam Abdominal exam: Present soft; Absent tenderness or guarding Extremities Exam Extremities exam: Present normal inspection Expanded Upper Extremity Exam Left: Comment: LUE: Ecchymosis along the medial left bicep extending laterally along the tricep to the shoulder area. There is some edema in this area. She is tender over the anterior shoulder and posterior shoulder. 2+ radial pulse. Sensation and ict teacher strength intact. No pallor distally. Back Exam Back exam: Present normal inspection Neurological Exam Neurological exam: Present alert and oriented X3 Psychiatric Psychiatric exam: Present normal affect Skin Skin exam: Present warm and dry Medical Decision Making Medical Records Screening: Per USPSTF and CDC recommendations, given the prevalence of disease in our region, it is our hospital?s policy to screen for HIV and viral Hepatitis for all patients aged 18 and over and those with ongoing risk factors. Tim Inquiry Pt receiving controlled substance: No Vital Signs: 04/09/25 15:01 04/09/25 15:30 04/09/25 16:09 Temperature 98.2 F Temperature Source Oral Pulse Rate 83 84 Pulse Rate [Left Radial] 89 Respiratory Rate 20 Blood Pressure 130/72 131/71 Blood Pressure [Right Arm] 143/103 H Blood Pressure Mean Blood Pressure Mean [Right Arm] 116 02 Sat by Pulse Oximetry 97 99 100 Oxygen Delivery Method Room Air 04/09/25 17:00 04/09/25 18:01 04/09/25 18:30 Temperature Temperature Source Pulse Rate 89 89 87 Pulse Rate [Left Radial] Respiratory Rate 18 Blood Pressure 147/71 H 147/84 H 157/87 H Blood Pressure [Right Arm] Blood Pressure Mean 105 110 Blood Pressure Mean [Right Arm] 02 Sat by Pulse Oximetry 98 100 98 Oxygen Delivery Method Room Air Room Air 04/09/25 19:00 Temperature Temperature Source Pulse Rate Pulse Rate [Left Radial] Respiratory Rate Blood Pressure 158/85 H Blood Pressure [Right Arm] Blood Pressure Mean 100 Blood Pressure Mean [Right Arm] 02 Sat by Pulse Oximetry Oxygen Delivery Method Lab Data Lab Results 04/09/25 15:45: WBC 5.5, RBC 2.86 L, Hgb 8.1 L, Hct 26.6 L, MCV 93.0, MCH 28.3, MCHC 30.5 L, RDW 15.2, Plt Count 78 L, MPV 10.6 H, Neut % (Auto) 69.3, Lymph % (Auto) 14.1, [place] % (Auto) 8.1, Eos % (Auto) 7.6, Baso % (Auto) 0.5, Neut # (Auto) 3.8, Lymph # (Auto) 0.8, [place] # (Auto) 0.5, Eos # (Auto) 0.4, Baso # (Auto) 0.0, PT 11.4, INR 1.03, APTT 31.5 H, Sodium 137, Potassium 4.8 D, Chloride 103, Carbon Dioxide 33 H, Anion Gap 5.8, BUN 16, Creatinine 0.80, Estimated Creat Clear 74, Estimated GFR 71, Est GFR ( Amer) 86, Glucose 102 H, Calcium 8.4, Total Bilirubin 0.7, AST 39 H, ALT 16, Alkaline Phosphatase 128 H, Total Creatine Kinase 65, Troponin I < 0.01, NT-Pro-B Natriuret Pep 246 H, Total Protein 5.6 L, Albumin 2.8 L, Globulin 2.8, Albumin/Globulin Ratio 1.0 L 04/09/25 16:09: VBG pH 7.48 H, VBG pCO2 44.2, VBG pO2 173.6 H, VBG HCO3 32.2 H, VBG Total CO2 33.5 H, VBG O2 Saturation 99.1 H, VBG Base Excess 8.7 H, VBG Lactic Acid 1.1 04/09/25 15:45 04/09/25 15:45 Orders (Tests/Meds): ED MEDICATIONS Discontinued Medications Generic Name Dose Route Start Last Admin Trade Name Freq PRN Reason Stop Dose Admin Albuterol/Ipratropium 3 ml 04/09/25 15:07 04/09/25 15:48 Ipratropium/Albuterol 3 Ml Neb IH 04/09/25 15:08 3 ml ONCE ONE Administration Iopamidol 160 ml 04/09/25 16:44 04/09/25 16:45 Iopamidol-370 (76%);100ml Bottle IV 04/09/25 16:45 160 ml ONCE ONE Administration Methylprednisolone Sodium Succinate 125 mg 04/09/25 15:50 04/09/25 15:52 Methylprednisolone Sod Succ 125mg Vial IV 04/09/25 15:51 125 mg ONCE ONE Administration Sodium Chloride 10 ml 04/09/25 16:44 04/09/25 16:45 Sodium Chloride 0.9% 10ml Syr (Rad Only) IV 04/09/25 16:45 10 ml ONCE ONE Administration Sodium Chloride 50 ml 04/09/25 16:44 04/09/25 16:45 0.9 % Sodium Chloride 50 Ml Vial IV 04/09/25 16:45 50 ml ONCE ONE Administration ORDERS Category Date Time Status CT angio chest PE protocol Stat Cat Scan 04/09/25 15:[address] angio humerus LT Stat Cat Scan 04/09/25 15:07 Completed Femur XR left 2 views [XR femur LT 2V] Stat Exams 04/09/25 17:55 Completed Hip XR left minimum 2 views [XR hip LT 2-3V w/pelvis] Exams 04/09/25 17:55 Completed Stat Humerus XR left [XR humerus LT] Stat Exams 04/09/25 15:07 Completed Shoulder XR left minimum 2 views [XR shoulder LT min 2V Exams 04/09/25 15:07 Completed ] Stat BNP [NT Pro Brain Natriuretic Pep.] Stat Lab 04/09/25 15:45 Completed CBC w/Auto Diff [Complete Blood Count Auto Diff] Stat Lab 04/09/25 15:45 Completed CK [Creatine Kinase] Stat Lab 04/09/25 15:45 Completed CMP [Comprehensive Metabolic Panel] Stat Lab 04/09/25 15:45 Completed PT INR [Prothrombin Time INR] Stat Lab 04/09/25 15:45 Completed PTT [Activated Partial Thrombo Time] Stat Lab 04/09/25 15:45 Completed Troponin I Stat Lab 04/09/25 15:45 Completed VBG [Venous Blood Gas] Stat RT 04/09/25 16:09 Completed ECG Data Tracing #1: I reviewed this ECG and interpreted as documented below: Normal sinus rhythm. No ST elevation or depression. QTc of 395 Medical Decision Narrative: Gabriella Vogt is a 69-year-old female with past medical history of COPD on 2 L nasal cannula, heart failure with preserved ejection fraction, splenomegaly, thrombocytopenia, hypertension, status post hysterectomy, who [facility] for complaints of left upper extremity bruising and swelling. Patient states that recently she had swelling in both of her lower extremities, left worse than right and had an ultrasound that showed no evidence of blood clot. She was on Eliquis at that time but was taken off of it 2 days ago. She states the following day, she noticed bruising and swelling in her left shoulder and wrist area. She states that she has not had any trauma, falls or IV placements in this area. She does note that she has significant arthritis in her left shoulder that is so severe that she cannot have shoulder replacement. She reports chronic numbness and tingling in her fingers secondary to polyneuropathy from a cervical spine injury in the past that is unchanged from normal. She states that she had an ultrasound of her left upper extremity yesterday that did not show any evidence of DVT and was sent here for MRI of her shoulder. She does report that she has felt more short of breath today than normal especially with exertion. On arrival, patient's initial blood pressure 143/103, heart rate 89 bpm, breathing 20 times a minute, 97% on 2 L nasal cannula, which is her baseline. Afebrile with temperature 90.2 ?F. Physical exam, stated above, revealed overall well-appearing female in no distress. She has mild end-expiratory wheezing bilaterally but no other abnormal breath sounds. No rubs or murmurs are appreciated. She does have ecchymosis along her left humerus area to the medial bicep extending along the lateral aspect of the tricep up to the shoulder area. She has 2+ radial pulses. Harness Cutter strength, sensation intact distally. No pallor distally. Patient does have tenderness over the left anterior and posterior shoulder on the left. We made contact with nursing staff to determine what exactly they were concerned about and to get left upper extremity DVT ultrasound report. They stated that they were hoping patient could have an MRI or CT of that extremity. Patient was seen in the emergency department on 04/06/2025 for epistaxis that was controlled in the emergency department after TXA and [employer]. She was continued on her Eliquis, which was initiated just a few days prior to her presentation on the first. Patient reports that that was the last time that she took Eliquis. Patient had a [id number] left lower extremity [id number] ultrasound and chest CTA. Chest CTA showed no pulmonary embolism. Differential diagnosis includes, but is not limited to: arterial injury, DVT, soft tissue injury, bony injury, capillary leak from anticoagulation, COPD exacerbation, pulmonary embolism, arthritis, among others. The most morbid conditions were considered and workup was based on these. Patient was administered 80 mg of IV methylprednisolone and was given a breathing treatment for mild wheezing likely from mild COPD exacerbation. Laboratory studies are grossly unremarkable and nonactionable. Her hemoglobin has dropped some and is 8.1 (baseline appears to be around 9), hematocrit 26.6. Coagulation studies nonactionable. VBG shows metabolic alkalosis at 7.48, pCO2 normal at 44.2, bicarb of 33.5. Lactate normal 1.1. Electrolytes gross unremarkable nonactionable. BNP is mildly elevated 246 but is slightly below baseline. Initial troponin less than 0.01. CK normal at 65. EKGs without evidence of ischemia. See interpretation above. X-ray imaging was interpreted by me personally. Patient does appear to have a fracture of the inferior glenoid with significant arthritic changes in the left shoulder. Per radiology, possible proximal humerus fracture as well. CT imaging of the left upper extremity and chest pulmonary embolism protocol showed no evidence of pulmonary embolism. She has subacute left-sided rib fractures, which patient states that she is aware of and are not recent. Vascular flow to the left upper extremity is intact. There is redemonstration of the glenoid fracture but no fracture of the proximal humerus on my interpretation. I did discuss patient's case with Dr. Littlejohn with orthopedic surgery team as I do believe patient likely had an osteophyte from her severe arthritis that fractured as she is denying that she has had any trauma or falls to the area. Will place patient in a sling and give follow-up for Dr. Littlejohn. Recommend Tylenol and ibuprofen to help with pain. Patient did complain of pain in her left hip area, so plain films of her left hip and femur were obtained. These were negative for fracture or dislocation. Patient was able to ambulate here in the emergency department. She has remained on her baseline 2 L nasal cannula without hypoxia and is sleeping comfortably. Return precautions were given. All questions were answered. She was then discharged back to patient's nursing facility. Critical Care Critical Care Time Critical Care Time: No
--- NOTE | 2025-04-09 15:45 | ECG_ITS ---
APPROVED REPORT Exam: Resting ECG HR:81 bpm ECG Measurements Heart Rate 81 AXES LA 167 P 80 QRSd 75 QRS 58 QT 357 T 57 QTc 395 Conclusion SINUS RHYTHM LOW QRS VOLTAGE IN PRECORDIAL LEADS [QRS DEFLECTION < 1.0 mV IN CHEST LEADS] BORDERLINE ECG UNCONFIRMED REPORT Normal sinus rhythm. No ST elevation or depression. Electronically signed by : KENNETH QUARLES, 04/09/2025 20:38:29
[2025-04-09] MEDS: IPRATROPIUM/ALBUTEROL 3 ML NEB IH (15:48)
[2025-04-09] MEDS: METHYLPREDNISOLONE SOD SUCC 125MG VIAL 125 MG IV (15:52)
[2025-04-09 16:06] LABS: Hematocrit 26.6 % (37.0-47.0); Hemoglobin 8.1 g/dL (12.2-16.2); Immature Granulocytes % 0.4 %; Mean Corpuscular HGB Conc 30.5 g/dL (31.8-35.4); Mean Corpuscular Hemoglobin 28.3 pg (27.0-31.2); Mean Corpuscular Volume 93.0 fl (81-99); Nucleated Red Blood Cells % 0 %; Platelet Count 78 K/mm3 (142-424); Red Blood Count 2.86 M/mm3 (4.20-5.40); Red Cell Distribution Width-SD 51.1 fL; White Blood Count 5.5 K/mm3 (4.8-10.8)
[2025-04-09 16:16] LABS: Alanine Aminotransferase 16 U/L (12-78); Albumin Level 2.8 g/dl (3.5-5.0); Albumin/Globulin Ratio 1.0 (1.1-1.8); Alkaline Phosphatase 128 U/L (38-126); Anion Gap 5.8 mEq/L (5-15); Aspartate Amino Transferase 39 U/L (14-36); Bilirubin,Total 0.7 mg/dl (0.2-1.3); Blood Urea Nitrogen 16 mg/dl (7-17); Calcium 8.4 mg/dl (8.4-10.2); Carbon Dioxide 33 mmol/L (22.0-30.0); Chloride 103 mmol/L (98-107); Creatine Kinase 65 U/L (30-135); Creatinine Clearance Estimated 74 mL/min (50-200); Creatinine,Serum 0.80 mg/dl (0.52-1.04); Estimated Glomerular Filt Rate 71 ml/min (>60); GFR (African American) 86 ML/MIN (>60); Globulin 2.8 g/dL (1.3-3.2); Glucose 102 mg/dl (74-100); Potassium 4.8 mmoL/L (3.5-5.1); Sodium 137 mmol/L (136-145); Total Protein,Serum 5.6 g/dl (6.3-8.2)
[2025-04-09 16:17] LABS: Activated Partial Thrombo Time 31.5 seconds (22.8-30.6); INR 1.03 (0.9-1.1); Prothrombin Time 11.4 seconds (10.1-12.5)
[2025-04-09 16:18] LABS: Lactate Venous 1.1 mmol/L (0.4-2.0); VBG HCO3 32.2 mmol/L (23-30); VBG PCO2 44.2 mmol/L (35-51); VBG PH 7.48 mmol/L (7.31-7.41); VBG PO2 173.6 mmol/L (28-40)
[2025-04-09 16:27] LABS: NT Pro Brain Natriuretic Pep. 246 pg/mL (0-125)
[2025-04-09 16:38] LABS: Troponin I < 0.01 ng/ml (0.00-0.034)
[2025-04-09] MEDS: 0.9 % SODIUM CHLORIDE 50 ML VIAL IV (16:45)
[2025-04-09] MEDS: IOPAMIDOL-370 (76%);100ML BOTTLE 160 ML IV (16:45)
[2025-04-09] MEDS: SODIUM CHLORIDE 0.9% 10ML SYR (RAD ONLY) 10 ML IV (16:45)
--- NOTE | 2025-04-09 17:26 | PC.NURSE ---
Called [facility], [place], asked for the 3rd time for DVT report to be faxed, gave different fax number.
--- NOTE | 2025-04-09 17:55 | XR_ITS ---
PROCEDURE INFORMATION: Exam: XR Left Femur Exam date and time: 04/09/2025 5:59 PM Age: 69 years old Clinical indication: Pain; Thigh; Left; Additional info: Pain, difficulty walking TECHNIQUE: Imaging protocol: Radiologic exam of the left femur. Views: 2 views. COMPARISON: CR XR HIP LT 2-3V W/PELVIS 04/09/2025 5:59 PM FINDINGS: Bones/joints: No acute fracture of the left femur identified. Left total knee prosthesis that appears in alignment. The left femoral head is within the acetabulum. Orthopedic hardware noted upper sacrum. Soft tissues: Contrast opacification of the bladder from CTA chest and left upper extremity performed on the same day. The soft tissues of the left thigh appear unremarkable. IMPRESSION: No acute findings.
--- NOTE | 2025-04-09 17:55 | XR_ITS ---
PROCEDURE INFORMATION: Exam: XR Left Hip Exam date and time: 04/09/2025 5:59 PM Age: 69 years old Clinical indication: Hip pain; Left hip; Additional info: Pain, difficulty walking TECHNIQUE: Imaging protocol: Radiologic exam of the left hip. Views: 2 or 3 views hip with pelvis when performed. COMPARISON: CR XR FEMUR LT 2V 04/09/2025 5:59 PM FINDINGS: Bones/joints: No acute bony abnormality of the left hip is identified. Mild narrowing of the left hip joint similar to the right hip. The pubic rami appear intact. No diastasis of the pubic symphysis or sacroiliac joints identified. Extensive orthopedic hardware within the mid and lower lumbar spine and upper sacrum. Soft tissues: No significant soft tissue abnormality appreciated. Organs: Opacified bladder from the CTA chest and left upper extremity performed at the same time. IMPRESSION: No acute findings.
--- NOTE | 2025-04-09 19:46 | PC.NURSE ---
Report given to SANTA Adrian at [facility].
== END 2025-04-09 20:22 ==
PROVIDERS: Emergency Provider Student in an Organized Health Care Education/Training Program
DX: S42.142A Displaced fracture of glenoid cavity of scapula, left shoulder, initial encounter for closed fracture (principal); M19.012 Primary osteoarthritis, left shoulder; S22.42XA Multiple fractures of ribs, left side, initial encounter for closed fracture; R22.32 Localized swelling, mass and lump, left upper limb; J44.9 Chronic obstructive pulmonary disease, unspecified; Z87.891 Personal history of nicotine dependence; X58.XXXA Exposure to other specified factors, initial encounter
CPT/HCPCS: 71275; 73030; 73060; 73206; 73502; 73552; 80053; 82550; 82803; 83880; 84484; 85025; 85610; 85730; 93005; 96374; 99285; J2919; Q9967

== ENCOUNTER 2025-04-11 07:45 | Outpatient (CLI) | payer MEDICARE, MEDICAID, SELFPAY ==
[2025-04-11 08:06] LABS: Hematocrit 26.1 % (37.0-47.0); Hemoglobin 8.3 g/dL (12.2-16.2); Immature Granulocytes % 0.5 %; Mean Corpuscular HGB Conc 31.8 g/dL (31.8-35.4); Mean Corpuscular Hemoglobin 28.9 pg (27.0-31.2); Mean Corpuscular Volume 90.9 fl (81-99); Nucleated Red Blood Cells % 0 %; Platelet Count 85 K/mm3 (142-424); Red Blood Count 2.87 M/mm3 (4.20-5.40); Red Cell Distribution Width-SD 51.2 fL; White Blood Count 5.5 K/mm3 (4.8-10.8)
[2025-04-11 12:32] LABS: Vitamin B12 637 pg/mL (239-931)
[2025-04-11 12:53] LABS: Folate 9.83 ng/mL
[2025-04-11 15:24] LABS: Iron 59 ug/dL (37-170)
[2025-04-11 15:52] LABS: Total Iron Binding Capacity 206 ug/dL (265-497)
[2025-04-11 16:22] LABS: Ferritin 68.0 ng/ml (11.1-264)
== END 2025-04-11 23:59 | disposition home or self-care (01) ==
PROVIDERS: PCP Family Medicine; Visit Provider Family Medicine
DX: D64.9 Anemia, unspecified (principal)
CPT/HCPCS: 36415; 82607; 82728; 82746; 83540; 83550; 85025

== ENCOUNTER 2025-04-20 08:48 | Emergency (ER) | payer MEDICARE, MEDICAID, SELFPAY ==
[2025-04-20 08:46] VITALS: BP 161/75; PULSE 79; RESP 20; TEMP 36.7; O2SAT 99; BMI 27.3
--- NOTE | 2025-04-20 08:54 | CT_ITS ---
FINAL REPORT TECHNIQUE: Axial imaging of the chest is obtained after the administration of contrast. 3-D MIP reformatted images were also obtained and reviewed per PE protocol. CLINICAL HISTORY: SOA, hemoptysis COMPARISON: 04/2025 FINDINGS: The pulmonary arteries are well filled. There is no evidence of pulmonary embolus. There is no aortic dissection. Heart size is normal. Small mediastinal lymph nodes are unchanged. Subcarinal lymphadenopathy and right hilar lymphadenopathy is also unchanged. There is no pleural or pericardial effusion. There is mild subpleural intralobular septal thickening with upper lobe predominance, unchanged. There are a few scattered bilateral upper lobe subpleural nodular opacities which are stable. Medial right lower lobe, 9 mm nodule is also unchanged. There is no new nodule or consolidation. Limited evaluation of the upper abdomen demonstrates cirrhosis with a recanalized paraumbilical vein. Left rib fractures are unchanged. There is advanced degenerative disease of the shoulders bilaterally. No acute osseous abnormality is seen. IMPRESSION: No evidence of pulmonary embolism or aortic dissection. Subpleural, upper lobe predominant interstitial change, similar to prior exam. Reviewed, Interpreted and Dictated by Malou Carver MD Transcribed by Kely Pope Authenticated and . [facility]
[2025-04-20 09:00] VITALS: BP 144/82; PULSE 79; O2SAT 99
--- NOTE | 2025-04-20 09:00 | XR_ITS ---
FINAL REPORT TECHNIQUE: Single view chest CLINICAL HISTORY: SOA COMPARISON: 04/2025 FINDINGS: A single view of the chest was obtained. The heart and mediastinum are within normal limits. There are bilateral interstitial opacities. Increased interstitial markings could represent mild edema. There is no pneumothorax. IMPRESSION: Increased interstitial markings which could represent mild edema. Reviewed, Interpreted and Dictated by Malou Carver MD Transcribed by Kely Pope Authenticated and [facility] [place] [place]
--- NOTE | 2025-04-20 09:01 | HMH.EDGENADL ---
Discharge Plan Disposition Patient Disposition: Home, Self-Care Prescriptions Prescriptions: New amoxicillin-pot clavulanate 875-125 mg tablet 1 tab PO BID Qty: 20 0RF oxycodone 5 mg tablet 2.5 mg PO DAILY Qty: 14 0RF Rx Instructions: You may take an additional 2.5 mg of oxycodone as needed every 6 hours in addition to your normal dose of 10 mg every 6 hours. Do not exceed 12.5 mg every 6 hours. No Action albuterol sulfate 2.5 mg /3 mL (0.083 %) solution for nebulization 2.5 mg inhalation Q4H PRN (Reason: dysnpea) ketotifen fumarate 0.025 % (0.035 %) drops 1 drp ophthalmic (eye) QID meloxicam 15 mg tablet 15 mg PO DAILY ondansetron HCl 4 mg tablet 4 mg PO Q6H PRN (Reason: nausea and vomiting) calcium carbonate 600 mg calcium (1,500 mg) tablet 600 mg PO DAILY methocarbamol 750 mg tablet 750 mg PO TID PRN (Reason: muscle spasm) pantoprazole 40 mg tablet,delayed release (DR/EC) 40 mg PO DAILY ferrous sulfate 325 mg (65 mg iron) tablet 325 mg PO DAILY docusate sodium 100 mg capsule 100 mg PO BID montelukast 10 mg tablet 10 mg PO DAILY cholecalciferol (vitamin D3) 125 mcg (5,000 unit) capsule 125 mcg PO DAILY escitalopram oxalate 10 mg tablet 10 mg PO DAILY lactulose 10 gram/15 mL solution 30 ml PO DAILY PRN (Reason: constipation) budesonide-formoterol 160-4.5 mcg/actuation HFA aerosol inhaler 2 puff inhalation BID levothyroxine 75 mcg capsule 75 mcg PO DAILY melatonin 5 mg capsule 5 mg PO QHS mirabegron [Myrbetriq] 25 mg tablet extended release 24 hr 25 mg PO DAILY potassium chloride [K-Tab] 20 mEq tablet extended release 20 meq PO BID Movantik 25 mg tablet 25 mg PO DAILY Rx Instructions: must be taken on empty stomach; no food 1 hr after or 2-3 hrs before dose tiotropium-olodaterol 2.5-2.5 mcg/actuation mist 2 puff inhalation DAILY acetaminophen 325 mg capsule 650 mg PO Q8HP PRN (Reason: Pain (Scale Score 1-3)) fluticasone propionate 50 mcg/actuation spray,suspension 1 spray intranasal DAILY Rx Instructions: administer into each nostril gabapentin 400 mg capsule 400 mg PO TID Qty: 90 5RF atorvastatin [Lipitor] 20 mg tablet 20 mg PO HS cetirizine 10 mg tablet 10 mg PO HS loperamide 2 mg tablet 2 mg PO Q8H PRN (Reason: Diarrhea) bumetanide 1 mg tablet 1 mg PO QAM polyethylene glycol 3350 [Miralax] 17 gram/dose powder 17 g PO DAILY cyclosporine [Restasis] 0.05 % dropperette 1 drp Eye-Both Q12H hydrocortisone 2 % gel 1 applic topical .q4 PRN (Reason: Skin Condition) triamcinolone acetonide 0.5 % cream 1 applic topical BID hydroxyzine HCl 25 mg tablet 25 mg PO Q8H PRN (Reason: Itching) Preparation H(pe, siddhartha radha) 0.25-50 % gel 1 applic topical Q6HP PRN (Reason: pain and itching) Qty: 51 0RF Quviviq 25 mg tablet 25 mg PO HS Qty: 30 5RF oxycodone-acetaminophen 10-325 mg tablet 1 tab PO Q6H Qty: 120 0RF diclofenac sodium 1 % gel 1 ea TOPICAL BID Referrals Follow up/Referrals: Provider,Referral, MD [Referring, Medical] - See instructions Clinical Impressions Clinical Impression: Rib fractures Print Language Print Language: Yakut Discharge ED Provider: Roma Finnegan General Adult HPI General Chief complaint: PAIN Stated complaint: Left Side Rib Pain Time Seen by Provider: 04/20/25 09:10 Mode of Arrival: EMS Description of Symptoms (Recalled from ER Triage Doc. by RN): pt is here for left rib pain, pt has hx of left rib fractures and fracture left humerus, pt states she was unaware of rib fractures however in past er md note it states it was discussed with patient History of Present Illness HPI narrative: This is a 69-year-old female with history of COPD and chronic hypoxic respiratory failure on 2 L nasal cannula at baseline, heart failure with preserved ejection fraction, splenomegaly, thrombocytopenia, anemia, HTN, status post hysterectomy, multiple previous back surgeries, history of recurrent MRSA pneumonia, chronic lower extremity edema left worse than right, and history of CAD who [facility] for increasing productive cough, episode of hemoptysis, and persistent left-sided chest wall and left upper extremity pain in the setting of recently diagnosed glenoid fracture and rib fractures. Patient was seen here in the emergency department on 04/30 and diagnosed with an inferior glenoid fracture and subacute left rib fractures. The patient states she never had a fall or truly traumatic mechanism, however she did roll over in bed and experienced worsening left shoulder pain. She notes persistent bruising of the left shoulder and now of the left breast. She is not currently on any blood thinners, she states she was briefly placed on Eliquis for concern of left lower extremity DVT, however recent ultrasound ruled this out. She had 1 episode of hemoptysis overnight which she describes as bright red blood measuring approximately a tablespoon. She has not had any recurrent episodes of this. Denies any known history of DVT, PE. No recent fevers or chills. Of note, the patient has seen Dr. Littlejohn in clinic for her glenoid fracture and is scheduled for follow-up in approximately 4 weeks. Related Data Home Medications ?Medication ?Instructions ?Recorded ?Confirmed albuterol sulfate 2.5 mg/3 mL 2.5 mg inhalation Q4H PRN dysnpea 03/07/25 04/14/25 (0.083 %) solution for nebulization budesonide-formoterol HFA 160 2 puff inhalation BID 03/07/25 04/14/25 mcg-4.5 mcg/actuation aerosol inhaler calcium carbonate 600 mg PO DAILY 03/07/25 04/14/25 cholecalciferol (vitamin D3) 125 125 mcg PO DAILY 03/07/25 04/14/25 mcg (5,000 unit) capsule docusate sodium 100 mg capsule 100 mg PO BID 03/07/25 04/14/25 escitalopram oxalate 10 mg tablet 10 mg PO DAILY 03/07/25 04/14/25 ferrous sulfate 325 mg (65 mg 325 mg PO DAILY 03/07/25 04/14/25 iron) tablet ketotifen fumarate 0.025 % (0.035 1 drp ophthalmic (eye) QID 03/07/25 04/14/25 %) eye drops lactulose 10 gram/15 mL oral 30 ml PO DAILY PRN constipation 03/07/25 04/14/25 solution levothyroxine 75 mcg capsule 75 mcg PO DAILY 03/07/25 04/14/25 melatonin 5 mg capsule 5 mg PO QHS 03/07/25 04/14/25 meloxicam 15 mg tablet 15 mg PO DAILY 03/07/25 04/14/25 methocarbamol 750 mg tablet 750 mg PO TID PRN muscle spasm 03/07/25 04/14/25 mirabegron 25 mg tablet,extended 25 mg PO DAILY 03/07/25 04/14/25 release 24 hr (Myrbetriq) montelukast 10 mg tablet 10 mg PO DAILY 03/07/25 04/14/25 naloxegol 25 mg tablet (Movantik) 25 mg PO DAILY 03/07/25 04/14/25 ondansetron HCl 4 mg tablet 4 mg PO Q6H PRN nausea and vomiting 03/07/25 04/14/25 pantoprazole 40 mg tablet,delayed 40 mg PO DAILY 03/07/25 04/14/25 release potassium chloride 20 mEq 20 meq PO BID 03/07/25 04/14/25 tablet,extended release (K-Tab) tiotropium 2.5 mcg-olodaterol 2.5 2 puff inhalation DAILY 03/07/25 04/14/25 mcg/actuation mist for inhalation fluticasone propionate 50 1 spray intranasal DAILY 04/05/25 04/14/25 mcg/actuation nasal spray,suspension diclofenac sodium 1 % topical gel 1 ea topical BID 04/06/25 04/14/25 acetaminophen 325 mg capsule 650 mg PO Q8HP PRN Pain (Scale 04/08/25 04/14/25 Score 1-3) atorvastatin 20 mg tablet (Lipitor) 20 mg PO HS 04/08/25 04/14/25 bumetanide 1 mg tablet 1 mg PO QAM 04/08/25 04/14/25 cetirizine 10 mg tablet 10 mg PO HS 04/08/25 04/14/25 cyclosporine 0.05 % eye drops in a 1 drp Eye-Both Q12H 04/08/25 04/14/25 dropperette (Restasis) hydrocortisone 2 % topical gel 1 applic topical .q4 PRN Skin 04/08/25 04/14/25 Condition hydroxyzine HCl 25 mg tablet 25 mg PO Q8H PRN Itching 04/08/25 04/14/25 loperamide 2 mg tablet 2 mg PO Q8H PRN Diarrhea 04/08/25 04/14/25 polyethylene glycol 3350 17 17 g PO DAILY 04/08/25 04/14/25 gram/dose oral powder (Miralax) triamcinolone acetonide 0.5 % 1 applic topical BID 04/08/25 04/14/25 topical cream Previous Rx's ?Medication ?Instructions ?Recorded daridorexant 25 mg tablet (Quviviq) 25 mg PO HS #30 tabs 03/08/25 gabapentin 400 mg capsule 400 mg PO TID #90 caps 04/05/25 phenylephrine-witch radha 0.25 1 applic topical Q6HP PRN pain and 04/08/25 %-50 % topical gel (Preparation H itching #51 grams (phenylephrine,witch radha)) oxycodone-acetaminophen 10 mg-325 1 tab PO Q6H #120 tabs 04/15/25 mg tablet amoxicillin 875 mg-potassium 1 tab PO BID #20 tabs 04/20/25 clavulanate 125 mg tablet oxycodone 5 mg tablet 2.5 mg (1/2 x 5 mg) PO DAILY #14 04/20/25 tabs Allergies Allergy/AdvReac Type Severity Reaction Status Date / Time ciprofloxacin Allergy Severe hives Verified 04/14/25 14:15 levofloxacin Allergy Severe hives Verified 04/14/25 14:15 phenazopyridine (From Allergy Severe Hives Verified 04/14/25 14:15 Pyridium) tetracycline Allergy Severe Rash Verified 04/14/25 14:15 Adhesive bandage Allergy Severe rash Uncoded 04/14/25 14:15 PFSH PFS Disclaimer: The information contained in this section may have been updated after the patient was seen, as this information can be updated by other users. Medical History Peripheral neuropathy Thrombocytopenia (HFpEF) heart failure with preserved ejection fraction Splenomegaly Metabolic dysfunction-associated steatohepatitis (MASH) Coronary artery disease Overactive bladder Abdominal wall hernia Esophageal varices Congestive heart failure Hepatitis C COPD (chronic obstructive pulmonary disease) Alteration in physical mobility Low back pain Polyneuropathy Anxiety Cirrhosis Osteoarthritis Insomnia GERD (gastroesophageal reflux disease) Anemia Hypertension Vitamin D deficiency Depression Allergic rhinitis Hypothyroidism Constipation Surgical History History of left knee replacement History of fusion of thoracolumbar spine History of colon resection Previous back surgery History of section Status post right knee replacement History of cholecystectomy H/O: hysterectomy Social History Smoking Status: Former smoker alcohol intake: never current occupational status: retired Travel in the last 8 weeks?: None housing: jail marital status: Have you lived/traveled outside US in past 30 days?: No Contact w/someone who lives/traveled outside US past 30 days?: No Exposure to someone with infectious disease in past 14 days?: No Do you have a fever (greater than 100.4 F or 38 C)?: No Have you tested positive for COVID-19?: No Exposed to someone with COVID-19 in past 14 days?: No Do you have a sore throat?: No Do you have a cough?: No Do you have any weakness?: No Do you have any diarrhea?: No Are you experiencing any unusual bleeding?: No Do you have any muscle aches/pain?: No Do you have any abdominal pain?: No Are you experiencing loss of taste or smell?: No Other Medical History Have you received the Pneumonia Vaccine: Yes (10/01/24) ROS Obtained: Yes All systems reviewed & no additional complaints except as documented Physical Exam General General appearance: alert and in no apparent distress Head Head exam: atraumatic Eye Eye exam: Present normal appearance, PERRL and EOMI ENT ENT exam: Present mucous membranes moist Neck Neck exam: Present normal inspection and full ROM; Absent tenderness Chest Chest inspection: Present symmetric chest wall rise; Absent tenderness Respiratory Respiratory exam: Present wheezes (Expiratory wheeze appreciable in the upper lung mitchell with mildly prolonged expiratory phase. On baseline 2 L nasal cannula saturating 100%.); Absent respiratory distress or accessory muscle use Cardiovascular Cardiovascular exam: Present regular rate and normal rhythm Abdominal Exam Abdominal exam: Present soft; Absent tenderness or guarding Extremities Exam Extremities exam: Present other (Limited range of motion secondary to pain of the left shoulder. Ecchymosis of the left bicep region with extension over the left shoulder and into the left breast. No large palpable hematomas. All compartments are soft. 2+ distal pulses to the left upper extremity. Left upper extremity is other) Neurological Exam Neurological exam: Present alert and oriented X3 Psychiatric Psychiatric exam: Present normal affect Skin Skin exam: Present warm and dry Medical Decision Making Medical Records Screening: Per USPSTF and CDC recommendations, given the prevalence of disease in our region, it is our hospital?s policy to screen for HIV and viral Hepatitis for all patients aged 18 and over and those with ongoing risk factors. Tim Inquiry Pt receiving controlled substance: Yes Tim was queried for this patient: No Risks and benefits of using a controlled substance: were discussed with pt by me Vital Signs: 04/20/25 08:46 04/20/25 09:00 04/20/25 10:15 Temperature 98.1 F Temperature Source Oral Pulse Rate 79 83 Pulse Rate [Left Radial] 79 Respiratory Rate 20 Blood Pressure 144/82 H 160/75 H Blood Pressure [Right Arm] 161/75 H Blood Pressure Mean Blood Pressure Mean [Right Arm] 103 02 Sat by Pulse Oximetry 99 99 98 Oxygen Delivery Method Room Air Nasal Cannula Oxygen Flow Rate (LPM) 2 04/20/25 10:30 04/20/25 11:56 Temperature 98.2 F Temperature Source Pulse Rate 83 76 Pulse Rate [Left Radial] Respiratory Rate 20 Blood Pressure 165/73 H 154/72 H Blood Pressure [Right Arm] Blood Pressure Mean 103 Blood Pressure Mean [Right Arm] 02 Sat by Pulse Oximetry 99 Oxygen Delivery Method Nasal Cannula Oxygen Flow Rate (LPM) 2 Lab Data Lab Results 04/20/25 09:20: WBC 6.1, RBC 3.58 L, Hgb 10.2 L, Hct 33.9 L, MCV 94.7, MCH 28.5, MCHC 30.1 L, RDW 16.4, Plt Count 108 L, MPV 10.3, Neut % (Auto) 64.1, Lymph % (Auto) 15.6, [place] % (Auto) 9.0, Eos % (Auto) 9.6, Baso % (Auto) 1.0, Neut # (Auto) 3.9, Lymph # (Auto) 1.0, [place] # (Auto) 0.6, Eos # (Auto) 0.6 H, Baso # (Auto) 0.1, Sodium 135 L, Potassium 4.1, Chloride 98, Carbon Dioxide 34 H, Anion Gap 7.1, BUN 11, Creatinine 0.90, Estimated Creat Clear 55, Estimated GFR 62, Est GFR ( Amer) 75, Glucose 81, Calcium 8.2 L, Total Bilirubin 0.8, AST 47 H, ALT 19, Alkaline Phosphatase 174 H, Troponin I < 0.01, Total Protein 6.6, Albumin 3.4 L, Globulin 3.2, Albumin/Globulin Ratio 1.1 04/20/25 09:30: VBG pH 7.40, VBG pCO2 48.0, VBG pO2 148.1 H, VBG HCO3 29.2, VBG Total CO2 30.7 H, VBG O2 Saturation 99.0 H, VBG Base Excess 4.4 H, VBG Lactic Acid 1.2 04/20/25 11:17: Urine Color Yellow, Urine Appearance Clear, Urine pH 6.5, Ur Specific [place] <= 1.005, Urine Protein Negative, Urine Glucose (UA) Negative, Urine Ketones Negative, Urine Blood Negative, Urine Nitrate Negative, Urine Bilirubin Negative, Urine Urobilinogen 0.2, Ur Leukocyte Esterase Negative, Urine RBC None, Urine WBC Occasional, Ur Squamous Epith Cells Occasional, Urine Bacteria Trace 04/20/25 09:20 04/20/25 09:20 Orders (Tests/Meds): ED MEDICATIONS Discontinued Medications Generic Name Dose Route Start Last Admin Trade Name Freq PRN Reason Stop Dose Admin Albuterol/Ipratropium 3 ml 04/20/25 08:59 04/20/25 09:31 Ipratropium/Albuterol 3 Ml Neb IH 04/20/25 09:00 3 ml ONCE ONE Administration Sodium Chloride 1,000 mls @ 999 mls/hr 04/20/25 08:54 04/20/25 11:37 Sod Chlor 0.9% 1000ml Bag IV 04/20/25 09:54 Infused .Q1H1M ONE Infusion Iopamidol 80 ml 04/20/25 10:14 04/20/25 10:15 Iopamidol-370 (76%);100ml Bottle IV 04/20/25 10:15 80 ml ONCE ONE Administration Morphine Sulfate 4 mg 04/20/25 08:59 04/20/25 09:30 Morphine 4mg/Ml Syringe IV 04/20/25 09:00 4 mg ONCE ONE Administration Morphine Sulfate 4 mg 04/20/25 11:26 04/20/25 11:40 Morphine 4mg/Ml Syringe IV 04/20/25 11:27 4 mg ONCE ONE Administration Ondansetron HCl 4 mg 10/15/25 09:28 04/20/25 09:30 Ondansetron 4mg/2ml Vial IV 04/20/25 09:29 4 mg ONCE ONE Administration Oxycodone HCl 10 mg 04/20/25 11:27 04/20/25 11:39 Oxycodone 5mg Immediate Release Tablet PO 04/20/25 11:28 10 mg ONCE ONE Administration Sodium Chloride 10 ml 04/20/25 10:14 04/20/25 10:15 Sodium Chloride 0.9% 10ml Syr (Rad Only) IV 04/20/25 10:15 10 ml ONCE ONE Administration Sodium Chloride 50 ml 04/20/25 10:14 04/20/25 10:15 0.9 % Sodium Chloride 50 Ml Vial IV 04/20/25 10:15 50 ml ONCE ONE Administration ORDERS Category Date Time Status CT angio chest PE protocol Stat Cat Scan 04/20/25 08:54 Completed Chest XR -- portable [XR chest portable] Stat Exams 04/20/25 09:00 Completed CBC w/Auto Diff [Complete Blood Count Auto Diff] Stat Lab 04/20/25 09:20 Completed CMP [Comprehensive Metabolic Panel] Stat Lab 04/20/25 09:20 Completed Trop I [Troponin I] Stat Lab 04/20/25 09:20 Completed UA [Urinalysis and Microscopic] Stat Lab 04/20/25 11:17 Completed VBG [Venous Blood Gas] Stat RT 04/20/25 09:30 Completed ECG Data Tracing #1: I reviewed this ECG and interpreted as documented below: EKG shows normal sinus rhythm at a rate of 76. Normal SD, QRS, and QTc intervals. Normal axis. No acute ST elevations or signs of acute subendocardial or transmural ischemia. Medical Decision Narrative: In summary, this is a 69y/o female presenting the emergency department for productive cough with 1 episode of hemoptysis and persistent left upper extremity pain in the setting of recently diagnosed subacute rib fractures and inferior glenoid fracture. Differential diagnosis includes but is not limited to: Pneumonia, PE, fracture related pain, pleural effusion, bronchitis, viral syndrome, atelectasis On my initial assessment, the patient is hemodynamically stable in no acute distress. Physical exam is notable for ecchymosis of the left arm and left breast with soft compartments and no palpable hematomas. She does have wheezing on exam. I am concerned about pneumonia considering her recent history of rib fractures. She is not using an [facility] spirometer at her [facility] facility. She does have extensive history of MRSA pneumonia reportedly requiring chest tubes, presumably for drainage of empyema in the past. She is high risk for recurrent pneumonia. Initial workup will be focused on evaluating for pneumonia, however considering her episode of hemoptysis I will obtain a CT PE in order to also rule out PE.. Patient received 1 L of normal saline, DuoNeb, morphine, Zofran for treatment. Labs personally interpreted which demonstrate no leukocytosis white blood cell count 6.1. There is chronic stable anemia, actually improved in comparison to recent studies with hemoglobin now 10.2 from 8.3. Mild improved thrombocytopenia. VBG shows no significant acid-base abnormality, pH 7.4, CO2 48, bicarb 29.2. Lactate within normal limits. CMP shows no significant findings. AST is very mildly elevated at 47. Alkaline phosphatase 174, however total bilirubin within normal limits. Initial troponin less than 0.01. XR personally interpreted which demonstrate no acute findings on my read. Specifically, no pneumothorax, trachea is midline, no subcutaneous emphysema, no pleural effusion, no cardiomegaly, no mass, no obvious bony abnormalities. CT personally interpreted which demonstrate no pulmonary embolism, no pleural effusion, no radiographic evidence of pneumonia. Radiology reads in agreement.. On reassessment, patient is saturating well on her baseline oxygen. No increased work of breathing. She is relieved to know there is no radiographic evidence of pneumonia. Her diagnosis is most consistent with bronchitis and COPD exacerbation. Considering her history of MRSA pneumonia and COPD, I recommended discharge home with Medrol Dosepak and doxycycline, which would provide some MRSA coverage. Patient is hesitant to take Medrol Dosepak because it makes her very anxious and agitated and she states that she is allergic to tetracyclines. Considering she has no evidence of pleural effusion or pneumonia on CT, I believe she would be appropriate for Augmentin, however if her symptoms worsen she may need empiric MRSA coverage. We also discussed her left upper extremity and left breast pain. I explained that I cannot take her pain completely away, however I agreed to an additional breakthrough 2.5 mg of oxycodone to be added to her normal 10 mg of oxycodone Q6. Thus, she can take 12.5 mg of oxycodone every 6 if needed. Patient's prescriptions were reviewed and prescription for 2.5 mg tablets of oxycodone sent to pharmacy in addition to a course of Augmentin. UA with no acute infectious process. Admission was considered and felt to be unnecessary considering patient is saturating well on her baseline oxygen without signs of respiratory distress. We had a shared decision-making discussion felt that her pain could still be managed on an outpatient basis and that it would ultimately be in her best interest to not be admitted to the hospital at this time. Of note, social determinants of health include long-term jail resident. Ultimately, the patient was discharged [facility] to [facility] facility. Critical Care Critical Care Time Critical Care Time: No
--- NOTE | 2025-04-20 09:27 | ECG_ITS ---
APPROVED REPORT Exam: Resting ECG HR:76 bpm ECG Measurements Heart Rate 76 AXES NV 163 P 80 QRSd 86 QRS 72 QT 383 T 69 QTc 413 Conclusion SINUS RHYTHM LOW QRS VOLTAGE IN PRECORDIAL LEADS [QRS DEFLECTION < 1.0 mV IN CHEST LEADS] No STEMI Electronically signed by : NELL BOWERS, 04/21/2025 06:33:15
[2025-04-20] MEDS: ONDANSETRON 4MG/2ML VIAL 4 MG IV (09:30)
[2025-04-20] MEDS: 0.9 % SODIUM CHLORIDE 1000ML 1,000 ML 999 ML IV (09:30)
[2025-04-20] MEDS: MORPHINE 4MG/ML SYRINGE 4 MG IV ×2 (09:30→11:40)
[2025-04-20] MEDS: IPRATROPIUM/ALBUTEROL 3 ML NEB IH (09:31)
[2025-04-20 09:32] LABS: Lactate Venous 1.2 mmol/L (0.4-2.0); VBG HCO3 29.2 mmol/L (23-30); VBG PCO2 48.0 mmol/L (35-51); VBG PH 7.40 mmol/L (7.31-7.41); VBG PO2 148.1 mmol/L (28-40)
[2025-04-20 09:39] LABS: Hematocrit 33.9 % (37.0-47.0); Hemoglobin 10.2 g/dL (12.2-16.2); Immature Granulocytes % 0.7 %; Mean Corpuscular HGB Conc 30.1 g/dL (31.8-35.4); Mean Corpuscular Hemoglobin 28.5 pg (27.0-31.2); Mean Corpuscular Volume 94.7 fl (81-99); Nucleated Red Blood Cells % 0 %; Platelet Count 108 K/mm3 (142-424); Red Blood Count 3.58 M/mm3 (4.20-5.40); Red Cell Distribution Width-SD 55.4 fL; White Blood Count 6.1 K/mm3 (4.8-10.8)
[2025-04-20 09:43] LABS: Chloride 98 mmol/L (98-107)
[2025-04-20 09:44] LABS: Albumin Level 3.4 g/dl (3.5-5.0); Potassium 4.1 mmoL/L (3.5-5.1); Sodium 135 mmol/L (136-145)
[2025-04-20 09:46] LABS: Alanine Aminotransferase 19 U/L (12-78); Albumin/Globulin Ratio 1.1 (1.1-1.8); Alkaline Phosphatase 174 U/L (38-126); Anion Gap 7.1 mEq/L (5-15); Aspartate Amino Transferase 47 U/L (14-36); Bilirubin,Total 0.8 mg/dl (0.2-1.3); Blood Urea Nitrogen 11 mg/dl (7-17); Carbon Dioxide 34 mmol/L (22.0-30.0); Creatinine Clearance Estimated 55 mL/min (50-200); Creatinine,Serum 0.90 mg/dl (0.52-1.04); Estimated Glomerular Filt Rate 62 ml/min (>60); GFR (African American) 75 ML/MIN (>60); Globulin 3.2 g/dL (1.3-3.2); Total Protein,Serum 6.6 g/dl (6.3-8.2)
[2025-04-20 09:47] LABS: Calcium 8.2 mg/dl (8.4-10.2); Glucose 81 mg/dl (74-100)
[2025-04-20 10:06] LABS: Troponin I < 0.01 ng/ml (0.00-0.034)
[2025-04-20 10:15] VITALS: BP 160/75; PULSE 83; O2SAT 98
[2025-04-20] MEDS: IOPAMIDOL-370 (76%);100ML BOTTLE 80 ML IV (10:15)
[2025-04-20] MEDS: SODIUM CHLORIDE 0.9% 10ML SYR (RAD ONLY) 10 ML IV (10:15)
[2025-04-20] MEDS: 0.9 % SODIUM CHLORIDE 50 ML VIAL IV (10:15)
[2025-04-20 10:30] VITALS: BP 165/73; PULSE 83; O2SAT 99
[2025-04-20 11:21] LABS: Microscopic, Urine URINE MICROSCOPIC (MICROSCOPIC)
--- NOTE | 2025-04-20 11:35 | PC.NURSE ---
EMS called for transfer of this pt back to [facility]
[2025-04-20] MEDS: OXYCODONE 5MG IMMEDIATE RELEASE TABLET 10 MG PO (11:39)
[2025-04-20 11:48] LABS: Bilirubin,Urine Negative (Negative); Color,Urine YELLOW (Yellow); Glucose,Urine (UA) Negative (Negative); Ketones,Urine Negative (Negative); Leukocyte Esterase,Urine Negative (Negative); PH,Urine 6.5 (5.0-8.5); Protein,Urine Negative (Negative); Specific Gravity, Urine <= 1.005 (1.005-1.030); Urobilinogen,Urine 0.2 EU/dl (0.2)
[2025-04-20 11:56] VITALS: BP 154/72; PULSE 76; RESP 20; TEMP 36.8; O2SAT 98
[2025-04-20 12:33] LABS: Squamous Epithelial Cell,Urine Occasional #/hpf (0-5); WBC,Urine Occasional #/hpf (0-3)
[2025-04-20 12:34] LABS: Bacteria,Urine Trace /lpf
== END 2025-04-20 12:00 | disposition home or self-care (01) ==
PROVIDERS: Emergency Provider Student in an Organized Health Care Education/Training Program; PCP Family Medicine
DX: R07.81 Pleurodynia (principal); S22.42XS Multiple fractures of ribs, left side, sequela; J44.9 Chronic obstructive pulmonary disease, unspecified; Z87.891 Personal history of nicotine dependence; W19.XXXS Unspecified fall, sequela
CPT/HCPCS: 71045; 71275; 80053; 81001; 82803; 84484; 85025; 93005; 96361; 96374; 96375; 96376; 99284; 99285; J2270; J2405; J7030; Q9967

== ENCOUNTER 2025-04-23 16:23 | Emergency (ER) | payer MEDICARE, MEDICAID, SELFPAY ==
--- OUTSIDE RECORDS SUMMARY | 2006-11-09 21:00 | XMS_ITS | Continuity of Care Document ---
Author Organization [facility] Address [address] [place] [id number] Phone Care Team Providers Care Game Producer Name Role Phone Unavailable Unavailable Unavailable Advance Directives Directive Yes / No Effective Date File Name No Information Encounters Encounter Description Practice Location Reason(s) For Visit Diagnoses Date Provider Providers Copied on Encounter [facility], [address] [place] [address], [id number], [place] tel:[phone] [facility] No Information 0 [phone] No Information Family History Family Member Type Diagnosis Age At Onset No Information Payers Payer name Insurance type Covered green party ID Authoriza tion(s) No Information Social History Type Description Quantity Date Captured Comments Sex Female Smoking Status No Information Chief Complaint And Reason For Visit No Information Reason For Referral Reason For Referral No Information History Of Present Illness Encounter Date Complaint History Of Prese nt Illness No Information Functional Status Date Functional Assessmen t No Information Instructions Date Instruction Additional Infor mation No Information Assessments Type Assessment Date No Information Patient Care Teams Name Effective Dates (start - stop) Status Members No Information
--- OUTSIDE RECORDS SUMMARY | 2025-03-08 05:44 | XMS_ITS | Continuity of Care Document ---
Author Organization [address] [place] [address] Address [address] [facility] [address] [place] [address] Phone Care Team Providers Care Hair Weaver Name Role Phone Shereen Byers OD Unavailable Unavailable Allergies, Adverse Reactions, Alerts Substance Reaction Status Criticality ADHESIVE BANDAGE Active No Informat ion TERBINAFINE HCL Active No Informati on tetracycline Active No Information CIPROFLOXACIN HCL Active No Informa tion ciprofloxacin Active No Information Medications Medication Instructions Dosage Effective Dates (start - stop) Status Comments albuterol sulfate 0.63 mg/3 mL solution for nebulization - Active bumetanide 2 mg tablet - Act pepito calcium 600 mg (as calcium carbonate 1,500 mg) tablet - Active hydroxyzine HCl 25 mg tablet - Active meloxicam 15 mg tablet - Act pepito pantoprazole 40 mg tablet,delayed release - Active ferrous sulfate 325 mg (65 mg iron) tablet - Active melatonin 5 mg tablet - Acti ve mirabegron ER 25 mg tablet,extended release 24 hr - Active polyethylene glycol 3350 17 gram/dose oral powder - Active oxycodone-acetaminophen 10 mg-325 mg tablet - Active acetaminophen 325 mg tablet - Active cefdinir 300 mg capsule - Ac tive Deep Sea Nasal 0.65 % spray aerosol - Active docusate sodium 100 mg capsule - Active Eye Itch Relief 0.025 % (0.035 %) drops - Active Cora-Tussin 100 mg/5 mL oral liquid - Active lactulose 10 gram/15 mL oral solution - Active levothyroxine 75 mcg tablet - Active loperamide 2 mg capsule - Ac tive ondansetron 4 mg disintegrating tablet - Active spironolactone 50 mg tablet - Active Stiolto Respimat 2.5 mcg-2.5 mcg/actuation solution for inhalation - Active Myrbetriq 25 mg tablet,extended release - Active gabapentin 400 mg capsule - Active tramadol 50 mg tablet - Acti ve hydroxyzine pamoate 25 mg capsule - Active Anti-Diarrheal (loperamide) 2 mg tablet - Active potassium chloride ER 20 mEq tablet,extended release(part/cryst) - Active propranolol 10 mg tablet - A ctive escitalopram 10 mg tablet - Active furosemide 40 mg tablet - Ac tive atorvastatin 20 mg tablet - Active montelukast 10 mg tablet - A ctive Stool Softener 100 mg tablet - Active cholecalciferol (vitamin D3) 125 mcg (5,000 unit) tablet - Active amoxicillin 875 mg-potassium clavulanate 125 mg tablet - Active Breyna 160 mcg-4.5 mcg/actuation HFA aerosol inhaler - Active duloxetine 60 mg capsule,delayed release - Active levothyroxine 175 mcg tablet - Active magnesium oxide 400 mg (241.3 mg magnesium) tablet - Active diazepam 2 mg tablet - Activ e Belsomra 15 mg tablet - Acti ve diazepam 5 mg tablet - Activ e oxycodone 10 mg tablet - Act pepito furosemide 20 mg tablet - Ac tive acetaminophen 500 mg tablet - Active potassium chloride ER 20 mEq tablet,extended release - Active fluticasone furoate 100 mcg-vilanterol 25 mcg/dose inhalation powder - Active prednisone 10 mg tablet - Ac tive methocarbamol 750 mg tablet - Active ondansetron HCl 4 mg tablet - Active cholecalciferol (vitamin D3) 1,250 mcg (50,000 unit) capsule - Active ClearLax 17 gram/dose oral powder - Active DOK 100 mg tablet - Active Procedures Procedure Date Debride mycotic nails 5 or less 025 Dystrophic nail(s), trim any number Complete Denture - Mandibular Try In DEBRIDE NAIL 1-5 Trim Dystrophic nail(s) REMOVE IMPACTED EAR WAX Try In Compsve Oral Eval- New/Est Pat 25 Bite Registration DEBRIDE NAIL 1-5 Trim Dystrophic nail(s) 1ST [facility] C[facility] SF/LOW MDM Denture Impression Advance Directives Directive Yes / No Effective Date File Name No Information Encounters Encounter Description Practice Location Reason(s) For Visit Diagnoses Date Provider Providers Copied on Encounter [address] [place] [address], [address], [id number], tel:[phone] [facility] No Information Mar- 5 AMANDA Mcgill. [address] [place] [address], [address], [id number], tel:[phone] [facility] Onychogryphosis Nail dystrophyOther specified peripheral vascular diseases 5 Andres Baez. [address] [facility], [facility] [address], [place], [place], [id number], [place]. tel:[phone] Referring Provider: Naveed Diop. [facility], [address] [place] [address] [address], [place], [place], [id number], tel:[phone] [facility] Complete loss of teeth, unspecified cause, unspecified [facility] [place]. Referring Provider: Naveed Diop. [facility], [address] [place] [address] [address], [place], [place], [id number], tel:[phone] [facility] Complete loss of teeth, unspecified cause, unspecified class 5 Reyna Short. [address] [facility], [address], [place], [address], [place]. tel:[phone] Referring Provider: Naveed Diop. [facility], [address] [place] [address], [place], [place], [id number], tel:[phone] [facility] Onychogryphosis Nail dystrophyOther specified peripheral vascular diseases 5 Andres Baez. [address] [facility], [facility] [address], [place], [place], [id number], [place]. tel:[phone] Referring Provider: Naveed Diop. [facility], [address] [place] [address], [place], [place], [id number], [place] tel:[phone] [facility] ear care exam (chief complaint) Impacted cerumen, bilateral 5 Renan Rahel. , [place]. Referring Provider: Naveed Diop. [facility], [address] [place] [address] [address], [place], [place], [id number], tel:[phone] [facility] Complete loss of teeth, unspecified cause, unspecified class 5 [place], [place]. Referring Provider: Naveed Diop. [address] [place] [address], [address] [facility] [address], [place], [place], [id number], tel:[phone] [facility] Encounter for dental examination and cleaning without abnormal findingsComplet e loss of teeth, unspecified cause, unspecified class 5 [place], [place]. Referring Provider: Naveed Diop. [facility] SF/LOW MDM [address] [place] [address], [address] [facility] [address], [place], [place], [id number], tel:[phone] [facility] Other hammer toe(s) (acquired), right footOther hammer toe(s) (acquired), left footHallux valgus (acquired), right footOnychogryph osisNail dystrophyOther specified peripheral vascular diseases 5 Andres Baez. [address] [facility], [address], [place], [place], [id number], . tel:[phone] Referring Provider: Naveed Diop. [address] [place] [address], [address] [facility] [address], [place], [place], [id number], tel:[phone] [facility] Complete loss of teeth, unspecified cause, unspecified class 5 Reyna Short. [address] [facility], [address], [place], [address], . tel:[phone] Referring Provider: Naveed Diop. Family History Family Member Type Diagnosis Age At Onset No Information Payers Payer name Insurance type Covered green party ID Authoriza tion(s) [employer] [id number] Medicaid [facility] [id number] Social History Type Description Quantity Date Captured Comments Sex Female Smoking Status No Information Chief Complaint And Reason For Visit No Information Reason For Referral Reason For Referral No Information Plan Of Treatment Date Type Action Status Patient Education Earwax Blockage: Care I nstructions completed History Of Present Illness Encounter Date Complaint History Of Prese nt Illness No Information Functional Status Date Functional Assessmen t No Information Instructions Date Instruction Additional Infor mation All dystrophic nails were trimmed as needed to prevent pain and other symptoms. Related to Nail dystrophy All of the thickened or mycotic nails described were debrided in both length and thickness. The nails were debrided using a nail nipper only. The patient tolerated the procedure well. Related to Onychogryphosis All dystrophic nails were trimmed as needed to prevent pain and other symptoms. Related to Nail dystrophy All of the thickened or mycotic nails described were debrided in both length and thickness. The nails were debrided using a nail nipper only. The patient tolerated the procedure well. Related to Onychogryphosis Performed cerumen re moval as per protocol. Right ear cleared. left ear cleared partially. Would recommend (If no history of TM rupture, ear trauma, or ear surgeries and with PCP approval) Debrox 10 gtts bid x 4 days in the left ear then a gentle warm water rinse on the 5th day or defer to PCP for treatment of choice prior to our next visit, Attempt Re-treat in 1-3 months Related to Impacted cerumen, bilateral All dystrophic nails were trimmed as needed to prevent pain and other symptoms. Related to Nail dystrophy All of the thickened or mycotic nails described were debrided in both length and thickness. The nails were debrided using a nail nipper only. The patient tolerated the procedure well. Related to Onychogryphosis Monitor for excess p ressure and use appropriate shoe gear. Monitor area for pressure; ensure wide shoes with roomy toe box and elastic uppers. Related to Hallux valgus (acquired), right foot Advised patient to m onitor for excess pressure and use appropriate shoe gear. Educated patient on hammertoe pathology, proper shoe choices including elastic uppers vs leather shoe gear, deep toe boxes, and proper sizing. Nursing staff advised to monitor tops and bottoms of toes for trophic changes indicative of excessive pressure from shoe-gear or other outside forces.The hammertoe deformity should be monitored for irritation, blisters, or pain. If this does occur, accommodation in shoes may be addressed. Related to Other hammer toe(s) (acquired), right foot Assessments Type Assessment Date No Information Patient Care Teams Name Effective Dates (start - stop) Status Members No Information
[2025-04-23] VITALS (11 sets, daily range): BP systolic 131–154; BP diastolic 68–82; PULSE 73–82; RESP 20; TEMP 36.7; O2SAT 95–99; BMI 38.9
--- NOTE | 2025-04-23 16:35 | ECG_ITS ---
APPROVED REPORT Exam: Resting ECG HR:75 bpm ECG Measurements Heart Rate 75 AXES LA 171 P 78 QRSd 83 QRS 67 QT 372 T 66 QTc 401 Conclusion SINUS RHYTHM LOW QRS VOLTAGE IN PRECORDIAL LEADS [QRS DEFLECTION < 1.0 mV IN CHEST LEADS] BORDERLINE ECG UNCONFIRMED REPORT Electronically signed by : JOANNE HIGGINS, 04/26/2025 02:54:19
--- NOTE | 2025-04-23 16:35 | XR_ITS ---
PROCEDURE INFORMATION: Exam: XR Chest Exam date and time: 04/23/2025 4:56 PM Age: 69 years old Clinical indication: Dyspnea TECHNIQUE: Imaging protocol: Radiologic exam of the chest. Views: 1 view. COMPARISON: 1. CR XR CHEST PORTABLE 04/20/2025 10:[address] angiogram of the chest dated April 20, 2025. FINDINGS: Lungs: Patchy atelectatic changes present at the right lung base. No new airspace consolidation suspicious for a pneumonia. Central vascular fullness and interstitial prominence is present within the right and left lung. Findings may correspond to mild interstitial edema with superimposed underlying interstitial lung change. Areas of patchy airspace opacity projecting within the right lower lung, likely is within the right middle lobe and corresponds to an area of scarring and postinflammatory change seen on prior CT scan. Pleural spaces: No large pleural effusion. No pneumothorax. Heart/Mediastinum: Heart size is upper limits for normal. The mediastinal contours are smooth. Vasculature: Atherosclerotic plaque at the aortic arch. Bones/joints: Severely advanced arthritic changes are present at the right and left glenohumeral joint. Multilevel degenerative changes are present throughout the spine. Posterior fusion hardware is in place within the lower thoracic and upper lumbar spine. IMPRESSION: Heart size within normal limits. Central vascular fullness and interstitial prominence may correspond to mild pulmonary edema versus underlying interstitial lung change. Slight increase in patchy areas of airspace opacity overlying the right lower lung which more likely corresponds to an area of postinflammatory change . No definitive pneumonia. Atelectatic changes are present at the right and left lung base. No pleural effusion. No pneumothorax.
[2025-04-23] MEDS: ALBUTEROL 0.083% 2.5 MG/3 ML NEB IH (17:20)
[2025-04-23 17:26] LABS: Hematocrit 29.8 % (37.0-47.0); Hemoglobin 9.1 g/dL (12.2-16.2); Immature Granulocytes % 0.4 %; Mean Corpuscular HGB Conc 30.5 g/dL (31.8-35.4); Mean Corpuscular Hemoglobin 29.1 pg (27.0-31.2); Mean Corpuscular Volume 95.2 fl (81-99); Nucleated Red Blood Cells % 0 %; Platelet Count 88 K/mm3 (142-424); Red Blood Count 3.13 M/mm3 (4.20-5.40); Red Cell Distribution Width-SD 54.4 fL; White Blood Count 5.4 K/mm3 (4.8-10.8)
--- NOTE | 2025-04-23 17:32 | ED_ITS ---
<Statement entered by Jameson Good MD - 04/25/25 02:58> I was consulted by the MARY, and we discussed the complexity of the problems being addressed. I approve the treatment and management plan for this patient's care in the emergency department, thus performing a substantive portion of the medical decision making. I personally discussed patient's workup today and although she does have some increased edema and vascular congestion on her chest x-ray, she has not been hypoxic and is on a diuretic currently. I do feel that she would benefit from follow-up with cardiology, which can be done in the upcoming weeks, but I do not feel that she would benefit from admission at this time as she is not having difficulty breathing with reassuring vitals and is speaking in full sentences. I encouraged her to eat work with physical therapy and Occupational Therapy at her facility to mobilize more to help with edema that she is having and to continue her diuretic. Patient continually stated that she wanted to be admitted to have fluid pulled off, however I do not see indication based on her workup and vital signs today that would require her to be admitted, and I do feel that close outpatient follow-up would be the best course of action here, however she continues to state that she was frustrated with this. She stated that she does not want to talk about this any further but was agreeable to discharge at this time. Jameson Good MD Discharge Plan Disposition Patient Disposition: Xfer SNF Condition: Good Prescriptions Prescriptions: New azithromycin [Zithromax Z-Schuyler] 250 mg tablet See Rx Instructions .ROUTE .COMPLEX Qty: 6 0RF Rx Instructions: For 250 mg dose pack: take 500 mg today (day 1), then 250 mg for 4 days (days 2-5) No Action albuterol sulfate 2.5 mg /3 mL (0.083 %) solution for nebulization 2.5 mg inhalation Q4H PRN (Reason: dysnpea) ketotifen fumarate 0.025 % (0.035 %) drops 1 drp ophthalmic (eye) QID meloxicam 15 mg tablet 15 mg PO DAILY ondansetron HCl 4 mg tablet 4 mg PO Q6H PRN (Reason: nausea and vomiting) calcium carbonate 600 mg calcium (1,500 mg) tablet 600 mg PO DAILY methocarbamol 750 mg tablet 750 mg PO TID PRN (Reason: muscle spasm) pantoprazole 40 mg tablet,delayed release (DR/EC) 40 mg PO DAILY ferrous sulfate 325 mg (65 mg iron) tablet 325 mg PO DAILY docusate sodium 100 mg capsule 100 mg PO BID montelukast 10 mg tablet 10 mg PO DAILY cholecalciferol (vitamin D3) 125 mcg (5,000 unit) capsule 125 mcg PO DAILY escitalopram oxalate 10 mg tablet 10 mg PO DAILY lactulose 10 gram/15 mL solution 30 ml PO DAILY PRN (Reason: constipation) budesonide-formoterol 160-4.5 mcg/actuation HFA aerosol inhaler 2 puff inhalation BID levothyroxine 75 mcg capsule 75 mcg PO DAILY melatonin 5 mg capsule 5 mg PO QHS mirabegron [Myrbetriq] 25 mg tablet extended release 24 hr 25 mg PO DAILY potassium chloride [K-Tab] 20 mEq tablet extended release 20 meq PO BID Movantik 25 mg tablet 25 mg PO DAILY Rx Instructions: must be taken on empty stomach; no food 1 hr after or 2-3 hrs before dose tiotropium-olodaterol 2.5-2.5 mcg/actuation mist 2 puff inhalation DAILY acetaminophen 325 mg capsule 650 mg PO Q8HP PRN (Reason: Pain (Scale Score 1-3)) fluticasone propionate 50 mcg/actuation spray,suspension 1 spray intranasal DAILY Rx Instructions: administer into each nostril gabapentin 400 mg capsule 400 mg PO TID Qty: 90 5RF atorvastatin [Lipitor] 20 mg tablet 20 mg PO HS cetirizine 10 mg tablet 10 mg PO HS loperamide 2 mg tablet 2 mg PO Q8H PRN (Reason: Diarrhea) bumetanide 1 mg tablet 1 mg PO QAM polyethylene glycol 3350 [Miralax] 17 gram/dose powder 17 g PO DAILY cyclosporine [Restasis] 0.05 % dropperette 1 drp Eye-Both Q12H hydrocortisone 2 % gel 1 applic topical .q4 PRN (Reason: Skin Condition) triamcinolone acetonide 0.5 % cream 1 applic topical BID hydroxyzine HCl 25 mg tablet 25 mg PO Q8H PRN (Reason: Itching) Preparation H(pe, witch radha) 0.25-50 % gel 1 applic topical Q6HP PRN (Reason: pain and itching) Qty: 51 0RF Quviviq 25 mg tablet 25 mg PO HS Qty: 30 5RF oxycodone-acetaminophen 10-325 mg tablet 1 tab PO Q6H Qty: 120 0RF oxycodone 5 mg tablet 2.5 mg PO QID PRN (Reason: pain) Qty: 14 0RF Rx Instructions: may take in addition to oxcodone 10 mg QID for 1 week. amoxicillin-pot clavulanate 875-125 mg tablet 1 tab PO BID Qty: 20 0RF oxycodone 5 mg tablet 2.5 mg PO DAILY Qty: 14 0RF Rx Instructions: You may take an additional 2.5 mg of oxycodone as needed every 6 hours in addition to your normal dose of 10 mg every 6 hours. Do not exceed 12.5 mg every 6 hours. diclofenac sodium 1 % gel 1 ea TOPICAL BID Referrals Follow up/Referrals: Aníbal Martínez MD [Staff Physician, Cardiology] - See instructions Provider,Referral, [Primary Care Provider, Medical] - See instructions Activity Restrictions/Add. Instructions Additional Instructions/Restrictions: FYou were seen for CHF/ slightly increased pulmonary edema. You were given an additional antibiotics for bronchitis. You will need to see the barrow worker. (1) 1: Verdana 4d Verdana 4Bd Clinical Impressions Verdana 4d Clinical Impression: Verdana 4d Verdana 4d CHF (congestive heart failure), Bronchitis Verdana 4Bd Instructions Verdana 4d Patient Instructions: Acute Bronchitis, DI for Heart Failure Verdana 4Bd Print Language Verdana 4d Print Language: Georgian Verdana 4Bd Discharge Verdana 4d ED Provider: Jameson Good 6Bd General Adult HPI Verdana 4d Verdana 4Il <REYNA Fry - Last Filed: 04/23/25 18:57> Verdana 4d Verdana 4Bd General Verdana 4d Chief complaint: Extremity Injury, Lower Stated complaint: Swelling Time Seen by Provider: 04/23/25 16:26 Verdana 4d Mode of Arrival: Verdana 4d EMS Verdana 4d Source of Information: Verdana 4d Patient Verdana 4d Description of Symptoms (Recalled from ER Triage Doc. by RN): Verdana 4d pt is here for ble swelling that has been going on for a week, pt seen here recently for broke arm and ribs, pt is alox3 at baseline Verdana 4Bd History of Present Illness Verdana 4d Verdana 4d HPI narrative: Verdana 4d Verdana 4d Patient presents complaining of lower extremity edema and dyspnea. She does take Bumex 1 mg every day. She reports that she was recently diagnosed with left-sided rib fractures. Verdana 4d Verdana 4d complaint: Verdana 4d Edema, dyspnea Verdana 4d Onset (ago): Verdana 4d day(s) Verdana 4d Location: Verdana 4d chest and lower extremity Verdana 4d Radiation: Verdana 4d extremity Verdana 4d Severity: Verdana 4d moderate Verdana 4d Consistency: Verdana 4d constant Verdana 4d Relieving factors: Verdana 4d rest Verdana 4d Exacerbating factors: Verdana 4d movement Verdana 4d Associated symptoms: Verdana 4d denies other symptoms Verdana 4Bd Related Data Verdana 4d Verdana 4Bd Home Medications Verdana 4d ?Medication ?Instructions ?Recorded ?Confirmed albuterol sulfate 2.5 mg/3 mL 2.5 mg inhalation Q4H PRN dysnpea 03/07/25 04/14/25 (0.083 %) solution for nebulization budesonide-formoterol HFA 160 2 puff inhalation BID 03/07/25 04/14/25 mcg-4.5 mcg/actuation aerosol inhaler calcium carbonate 600 mg PO DAILY 03/07/25 04/14/25 cholecalciferol (vitamin D3) 125 125 mcg PO DAILY 03/07/25 04/14/25 mcg (5,000 unit) capsule docusate sodium 100 mg capsule 100 mg PO BID 03/07/25 04/14/25 escitalopram oxalate 10 mg tablet 10 mg PO DAILY 03/07/25 04/14/25 ferrous sulfate 325 mg (65 mg 325 mg PO DAILY 03/07/25 04/14/25 iron) tablet ketotifen fumarate 0.025 % (0.035 1 drp ophthalmic (eye) QID 03/07/25 04/14/25 %) eye drops lactulose 10 gram/15 mL oral 30 ml PO DAILY PRN constipation 03/07/25 04/14/25 solution levothyroxine 75 mcg capsule 75 mcg PO DAILY 03/07/25 04/14/25 melatonin 5 mg capsule 5 mg PO QHS 03/07/25 04/14/25 meloxicam 15 mg tablet 15 mg PO DAILY 03/07/25 04/14/25 methocarbamol 750 mg tablet 750 mg PO TID PRN muscle spasm 03/07/25 04/14/25 mirabegron 25 mg tablet,extended 25 mg PO DAILY 03/07/25 04/14/25 release 24 hr (Myrbetriq) montelukast 10 mg tablet 10 mg PO DAILY 03/07/25 04/14/25 naloxegol 25 mg tablet (Movantik) 25 mg PO DAILY 03/07/25 04/14/25 ondansetron HCl 4 mg tablet 4 mg PO Q6H PRN nausea and vomiting 03/07/25 04/14/25 pantoprazole 40 mg tablet,delayed 40 mg PO DAILY 03/07/25 04/14/25 release potassium chloride 20 mEq 20 meq PO BID 03/07/25 04/14/25 tablet,extended release (K-Tab) tiotropium 2.5 mcg-olodaterol 2.5 2 puff inhalation DAILY 03/07/25 04/14/25 mcg/actuation mist for inhalation fluticasone propionate 50 1 spray intranasal DAILY 04/05/25 04/14/25 mcg/actuation nasal spray,suspension diclofenac sodium 1 % topical gel 1 ea topical BID 04/06/25 04/14/25 acetaminophen 325 mg capsule 650 mg PO Q8HP PRN Pain (Scale 04/08/25 04/14/25 Score 1-3) atorvastatin 20 mg tablet (Lipitor) 20 mg PO HS 04/08/25 04/14/25 bumetanide 1 mg tablet 1 mg PO QAM 04/08/25 04/14/25 cetirizine 10 mg tablet 10 mg PO HS 04/08/25 04/14/25 cyclosporine 0.05 % eye drops in a 1 drp Eye-Both Q12H 04/08/25 04/14/25 dropperette (Restasis) hydrocortisone 2 % topical gel 1 applic topical .q4 PRN Skin 04/08/25 04/14/25 Condition hydroxyzine HCl 25 mg tablet 25 mg PO Q8H PRN Itching 04/08/25 04/14/25 loperamide 2 mg tablet 2 mg PO Q8H PRN Diarrhea 04/08/25 04/14/25 polyethylene glycol 3350 17 17 g PO DAILY 04/08/25 04/14/25 gram/dose oral powder (Miralax) triamcinolone acetonide 0.5 % 1 applic topical BID 04/08/25 04/14/25 topical cream Verdana 4Bd Previous Rx's Verdana 4d ?Medication ?Instructions ?Recorded daridorexant 25 mg tablet (Quviviq) 25 mg PO HS #30 tabs 03/08/25 gabapentin 400 mg capsule 400 mg PO TID #90 caps 04/05/25 phenylephrine-witch radha 0.25 1 applic topical Q6HP PRN pain and 04/08/25 %-50 % topical gel (Preparation H itching #51 grams (phenylephrine,witch radha)) oxycodone-acetaminophen 10 mg-325 1 tab PO Q6H #120 tabs 04/15/25 mg tablet amoxicillin 875 mg-potassium 1 tab PO BID #20 tabs 04/20/25 clavulanate 125 mg tablet oxycodone 5 mg tablet 2.5 mg (1/2 x 5 mg) PO DAILY #14 04/20/25 tabs oxycodone 5 mg tablet 2.5 mg (1/2 x 5 mg) PO QID PRN 04/20/25 pain #14 tabs azithromycin 250 mg tablet See Rx Instructions PO .COMPLEX #6 04/23/25 (Zithromax Z-Schuyler) tabs Verdana 4Bd Allergies Verdana 4d Allergy/AdvReac Type Severity Reaction Status Date / Time ciprofloxacin Allergy Severe hives Verified 04/14/25 14:15 levofloxacin Allergy Severe hives Verified 04/14/25 14:15 phenazopyridine (From Allergy Severe Hives Verified 04/14/25 14:15 Pyridium) tetracycline Allergy Severe Rash Verified 04/14/25 14:15 Adhesive bandage Allergy Severe rash Uncoded 04/14/25 14:15 Verdana 6Bd PFSH Verdana 4d Verdana 4Il <REYNA Fry - Last Filed: 04/23/25 18:57> Verdana 4d Verdana 4Bd PFSH Verdana 4d Verdana 4d Disclaimer: Verdana 4d Calibri 5d The information contained in this section may have been updated after the patient was seen, as this information can be updated by other users. Verdana 4d Verdana 4BUd Medical History Verdana 4d Verdana 4d Peripheral neuropathy Thrombocytopenia (HFpEF) heart failure with preserved ejection fraction Splenomegaly Metabolic dysfunction-associated steatohepatitis (MASH) Coronary artery disease Overactive bladder Abdominal wall hernia Esophageal varices Congestive heart failure Hepatitis C COPD (chronic obstructive pulmonary disease) Alteration in physical mobility Low back pain Polyneuropathy Anxiety Cirrhosis Osteoarthritis Insomnia GERD (gastroesophageal reflux disease) Anemia Hypertension Vitamin D deficiency Depression Allergic rhinitis Hypothyroidism Constipation Verdana 4BUd Surgical History Verdana 4d Verdana 4d History of left knee replacement History of fusion of thoracolumbar spine History of colon resection Previous back surgery History of section Status post right knee replacement History of cholecystectomy H/O: hysterectomy Verdana 4BUd Social History Verdana 4d Verdana 4 Verdana 4 Verdana 4B Smoking Status Verdana 4 : Former smoker Verdana 4 Verdana 4B alcohol intake Verdana 4 : never Verdana 4 Verdana 4B current occupational status Verdana 4 : retired Verdana 4 Verdana 4B Travel in the last 8 weeks? Verdana 4 : None Verdana 4 Verdana 4B housing Verdana 4 : [facility] Verdana 4 Verdana 4B marital status Verdana 4 : Verdana 4 Verdana 4B Have you lived/traveled outside [place] in past 30 days? Verdana 4 : No Verdana 4 Verdana 4B Contact w/someone who lives/traveled outside [place] past 30 days? Verdana 4 : No Verdana 4 Verdana 4B Exposure to someone with infectious disease in past 14 days? Verdana 4 : No Verdana 4 Verdana 4B Do you have a fever (greater than 100.4 F or 38 C)? Verdana 4 : No Verdana 4 Verdana 4B Have you tested positive for COVID-19? Verdana 4 : No Verdana 4 Verdana 4B Exposed to someone with COVID-19 in past 14 days? Verdana 4 : No Verdana 4 Verdana 4B Do you have a sore throat? Verdana 4 : No Verdana 4 Verdana 4B Do you have a cough? Verdana 4 : No Verdana 4 Verdana 4B Do you have any weakness? Verdana 4 : No Verdana 4 Verdana 4B Do you have any diarrhea? Verdana 4 : No Verdana 4 Verdana 4B Are you experiencing any unusual bleeding? Verdana 4 : No Verdana 4 Verdana 4B Do you have any muscle aches/pain? Verdana 4 : No Verdana 4 Verdana 4B Do you have any abdominal pain? Verdana 4 : No Verdana 4 Verdana 4B Are you experiencing loss of taste or smell? Verdana 4 : No Verdana 4Bd Other Medical History Verdana 4d Verdana 4d Have you received the Pneumonia Vaccine: Verdana 4d Yes (10/01/24) Verdana 4Il <REYNA Fry - Last Filed: 04/23/25 18:57> Verdana 4d Verdana 4d ROS Obtained: Verdana 4d Yes Systems reviewed as appropriate & no additional complaints except as documented Verdana 6Bd Physical Exam Verdana 4d Verdana 4Il <REYNA Fry - Last Filed: 04/23/25 18:57> Verdana 4d Verdana 4Bd General Verdana 4d Verdana 4d General appearance: Verdana 4d alert and in no apparent distress Verdana 4Bd Head Verdana 4d Verdana 4d Head exam: Verdana 4d atraumatic and normocephalic Verdana 4Bd Eye Verdana 4d Verdana 4d Eye exam: Verdana 4d Present normal appearance and EOMI Verdana 4Bd Chest Verdana 4d Verdana 4d Chest inspection: Verdana 4d Present symmetric chest wall rise Verdana 4Bd Respiratory Verdana 4d Verdana 4d Respiratory exam: Verdana 4d Present normal lung sounds bilaterally; Absent wheezes or stridor Verdana 4Bd Cardiovascular Verdana 4d Verdana 4d Cardiovascular exam: Verdana 4d Present regular rate and normal rhythm; Absent systolic murmur Verdana 4Bd Extremities Exam Verdana 4d Verdana 4d Extremities exam: Verdana 4d Present other (Pedal edema, dorsalis pedis palpable and equal) Verdana 4Bd Neurological Exam Verdana 4d Verdana 4d Neurological exam: Verdana 4d Present alert and oriented X3 Verdana 4Bd Psychiatric Verdana 4d Verdana 4d Psychiatric exam: Verdana 4d Present normal affect and normal mood Verdana 4Bd Skin Verdana 4d Verdana 4d Skin exam: Verdana 4d Present warm, dry and intact Verdana 6Bd Medical Decision Making Verdana 4d Verdana 4Il <REYNA Fry - Last Filed: 04/23/25 18:57> Verdana 4d Verdana 4Bd Medical Records Verdana 4d Verdana 4d Screening: Verdana 4d Verdana 4d Per USPSTF and CDC recommendations, given the prevalence of disease in our region, it is our hospital?s policy to screen for HIV and viral Hepatitis for all patients aged 18 and over and those with ongoing risk factors. Verdana 5d Verdana 4d Verdana 4Bd Tim Inquiry Verdana 4d Verdana 4d Pt receiving controlled substance: Verdana 4d No Verdana 4d Vital Signs: Verdana 4d Verdana 4d Verdana 4d 04/23/25 16:20 04/23/25 16:30 04/23/25 17:00 Temperature 98.1 F Temperature Source Oral Pulse Rate 73 82 Pulse Rate [Left Radial] 80 Respiratory Rate 20 Blood Pressure 144/74 H Blood Pressure [Right Arm] 141/76 H Blood Pressure Mean [Right Arm] 97 02 Sat by Pulse Oximetry 95 98 98 Oxygen Delivery Method Room Air Nasal Cannula Oxygen Flow Rate (LPM) 2 Verdana 4d 04/23/25 17:22 04/23/25 17:30 04/23/25 18:00 Temperature Temperature Source Pulse Rate 80 75 75 Pulse Rate [Left Radial] Respiratory Rate Blood Pressure 141/82 H 149/75 H 131/68 Blood Pressure [Right Arm] Blood Pressure Mean [Right Arm] 02 Sat by Pulse Oximetry 97 99 98 Oxygen Delivery Method Nasal Cannula Nasal Cannula Oxygen Flow Rate (LPM) 2 2 Verdana 4d 04/23/25 18:31 04/23/25 18:57 04/23/25 19:00 Temperature 98.1 F Temperature Source Pulse Rate 82 81 79 Pulse Rate [Left Radial] Respiratory Rate 20 Blood Pressure 154/79 H 154/79 H 147/77 H Blood Pressure [Right Arm] Blood Pressure Mean [Right Arm] 02 Sat by Pulse Oximetry 96 96 Oxygen Delivery Method Room Air Oxygen Flow Rate (LPM) Verdana 4d 04/23/25 19:30 04/23/25 20:00 Temperature Temperature Source Pulse Rate 77 82 Pulse Rate [Left Radial] Respiratory Rate Blood Pressure 152/78 H 148/74 H Blood Pressure [Right Arm] Blood Pressure Mean [Right Arm] 02 Sat by Pulse Oximetry 97 98 Oxygen Delivery Method Oxygen Flow Rate (LPM) Verdana 4d Verdana 4Bd Lab Data Verdana 4d Verdana 4Bd Lab Results Verdana 4B 04/23/25 17:05: Verdana 4 WBC 5.4, Verdana 4B RBC 3.13 L Verdana 4 , Verdana 4B Hgb 9.1 L Verdana 4 , Verdana 4B Hct 29.8 L Verdana 4 , MCV 95.2, MCH 29.1, Verdana 4B MCHC 30.5 L Verdana 4 , RDW 15.8, Verdana 4B Plt Count 88 L Verdana 4 , MPV 10.1, Neut % (Auto) 66.3, Lymph % (Auto) 15.6, [place] % (Auto) 8.0, Eos % (Auto) 8.6, Baso % (Auto) 1.1, Neut # (Auto) 3.6, Lymph # (Auto) 0.8, [place] # (Auto) 0.4, Verdana 4B Eos # (Auto) 0.5 H Verdana 4 , Baso # (Auto) 0.1, Sodium 136, Potassium 3.8, Chloride 98, Verdana 4B Carbon Dioxide 36 H Verdana 4 , Anion Gap 5.8, BUN 12, Creatinine 0.90, Estimated Creat Clear 81, Estimated GFR 62, Est GFR ( Amer) 75, Glucose 92, Verdana 4B Calcium 8.2 L Verdana 4 , Total Bilirubin 0.5, AST 35, ALT 16, Verdana 4B Alkaline Phosphatase 154 H Verdana 4 , Troponin I < 0.01, Verdana 4B NT-Pro-B Natriuret Pep 206 H Verdana 4 , Total Protein 6.4, Verdana 4B Albumin 3.2 L Verdana 4 , Globulin 3.2, Verdana 4B Albumin/Globulin Ratio 1.0 L Verdana 4 Verdana 4d Verdana 4 04/23/25 17:05 Verdana 4 04/23/25 17:05 Verdana 4d Orders (Tests/Meds): Verdana 4d Verdana 4Bd ED MEDICATIONS Verdana 4d Discontinued Medications Verdana 4d Generic Name Dose Route Start Last Admin Trade Name Freq PRN Reason Stop Dose Admin Albuterol Sulfate 2.5 mg 04/23/25 16:35 04/23/25 17:20 Albuterol 0.083% 2.5 Mg/3 Ml Neb IH 04/23/25 16:36 2.5 mg ONCE ONE Administration Sodium Chloride 10 ml 04/23/25 16:35 Sodium Chloride 0.9% 10ml Flush Syringe IV 05/23/25 16:34 NEEDED PRN Maintain IV Site Verdana 4Bd ORDERS Verdana 4d Category Date Time Status Chest XR -- portable [XR chest portable] Stat Exams 04/23/25 16:35 Completed BNP [NT Pro Brain Natriuretic Pep.] Stat Lab 04/23/25 17:05 Completed CBC w/Auto Diff [Complete Blood Count Auto Diff] Stat Lab 04/23/25 17:05 Completed CMP [Comprehensive Metabolic Panel] Stat Lab 04/23/25 17:05 Completed Trop I [Troponin I] Stat Lab 04/23/25 17:05 Completed Verdana 4d Verdana 4d Medical Decision Narrative: Verdana 4d Verdana 4d In summary patient is a 69-year-old female who presents the emergency department for evaluation of edema, dyspnea. Patient is hemodynamically stable upon arrival, afebrile. Pedal edema on exam, wheezing on pulmonary exam. Differential diagnosis includes bronchitis, pneumonia, CHF exacerbation. Patient had CTA ches tnegative for PE twice this month. Initial workup will be conducted with hematologic labs, chest x-ray, BNP. Initial inventions include albuterol neb. Initial workup reviewed by me slight increase in pulmonary edema. Upon repeat evaluation patient resting comfortably, not hypoxic. Given this patient is appropriate for discharge back to the nursing facility with instructions to follow-up with cardiology this week. Zithromax added to Augmentin she was prescribed 3 days ago.. Verdana 4d Verdana 4Il <Jameson Good MD - Last Filed: 04/25/25 03:34> Verdana 4d Verdana 4d Vital Signs: Verdana 4d Verdana 4d Verdana 4d 04/23/25 16:20 04/23/25 16:30 04/23/25 17:00 Temperature 98.1 F Temperature Source Oral Pulse Rate 73 82 Pulse Rate [Left Radial] 80 Respiratory Rate 20 Blood Pressure 144/74 H Blood Pressure [Right Arm] 141/76 H Blood Pressure Mean [Right Arm] 97 02 Sat by Pulse Oximetry 95 98 98 Oxygen Delivery Method Room Air Nasal Cannula Oxygen Flow Rate (LPM) 2 Verdana 4d 04/23/25 17:22 04/23/25 17:30 04/23/25 18:00 Temperature Temperature Source Pulse Rate 80 75 75 Pulse Rate [Left Radial] Respiratory Rate Blood Pressure 141/82 H 149/75 H 131/68 Blood Pressure [Right Arm] Blood Pressure Mean [Right Arm] 02 Sat by Pulse Oximetry 97 99 98 Oxygen Delivery Method Nasal Cannula Nasal Cannula Oxygen Flow Rate (LPM) 2 2 Verdana 4d 04/23/25 18:31 04/23/25 18:57 04/23/25 19:00 Temperature 98.1 F Temperature Source Pulse Rate 82 81 79 Pulse Rate [Left Radial] Respiratory Rate 20 Blood Pressure 154/79 H 154/79 H 147/77 H Blood Pressure [Right Arm] Blood Pressure Mean [Right Arm] 02 Sat by Pulse Oximetry 96 96 Oxygen Delivery Method Room Air Oxygen Flow Rate (LPM) Verdana 4d 04/23/25 19:30 04/23/25 20:00 Temperature Temperature Source Pulse Rate 77 82 Pulse Rate [Left Radial] Respiratory Rate Blood Pressure 152/78 H 148/74 H Blood Pressure [Right Arm] Blood Pressure Mean [Right Arm] 02 Sat by Pulse Oximetry 97 98 Oxygen Delivery Method Oxygen Flow Rate (LPM) Verdana 4d Verdana 4Bd Lab Data Verdana 4d Verdana 4Bd Lab Results Verdana 4B 04/23/25 17:05: Verdana 4 WBC 5.4, Verdana 4B RBC 3.13 L Verdana 4 , Verdana 4B Hgb 9.1 L Verdana 4 , Verdana 4B Hct 29.8 L Verdana 4 , MCV 95.2, MCH 29.1, Verdana 4B MCHC 30.5 L Verdana 4 , RDW 15.8, Verdana 4B Plt Count 88 L Verdana 4 , MPV 10.1, Neut % (Auto) 66.3, Lymph % (Auto) 15.6, [place] % (Auto) 8.0, Eos % (Auto) 8.6, Baso % (Auto) 1.1, Neut # (Auto) 3.6, Lymph # (Auto) 0.8, [place] # (Auto) 0.4, Verdana 4B Eos # (Auto) 0.5 H Verdana 4 , Baso # (Auto) 0.1, Sodium 136, Potassium 3.8, Chloride 98, Verdana 4B Carbon Dioxide 36 H Verdana 4 , Anion Gap 5.8, BUN 12, Creatinine 0.90, Estimated Creat Clear 81, Estimated GFR 62, Est GFR ( Amer) 75, Glucose 92, Verdana 4B Calcium 8.2 L Verdana 4 , Total Bilirubin 0.5, AST 35, ALT 16, Verdana 4B Alkaline Phosphatase 154 H Verdana 4 , Troponin I < 0.01, Verdana 4B NT-Pro-B Natriuret Pep 206 H Verdana 4 , Total Protein 6.4, Verdana 4B Albumin 3.2 L Verdana 4 , Globulin 3.2, Verdana 4B Albumin/Globulin Ratio 1.0 L Verdana 4 Verdana 4d Verdana 4d Orders (Tests/Meds): Verdana 4d Verdana 4Bd ED MEDICATIONS Verdana 4d Discontinued Medications Verdana 4d Generic Name Dose Route Start Last Admin Trade Name Freq PRN Reason Stop Dose Admin Albuterol Sulfate 2.5 mg 04/23/25 16:35 04/23/25 17:20 Albuterol 0.083% 2.5 Mg/3 Ml Neb IH 04/23/25 16:36 2.5 mg ONCE ONE Administration Sodium Chloride 10 ml 04/23/25 16:35 Sodium Chloride 0.9% 10ml Flush Syringe IV 05/23/25 16:34 NEEDED PRN Maintain IV Site Verdana 4Bd ORDERS Verdana 4d Category Date Time Status Chest XR -- portable [XR chest portable] Stat Exams 04/23/25 16:35 Completed BNP [NT Pro Brain Natriuretic Pep.] Stat Lab 04/23/25 17:05 Completed CBC w/Auto Diff [Complete Blood Count Auto Diff] Stat Lab 04/23/25 17:05 Completed CMP [Comprehensive Metabolic Panel] Stat Lab 04/23/25 17:05 Completed Trop I [Troponin I] Stat Lab 04/23/25 17:05 Completed Verdana 4d Verdana 4Bd ECG Data Verdana 4d Tracing #1: Verdana 4d I reviewed this ECG and interpreted as documented below: Verdana 4d Verdana 4d Normal sinus rhythm. No ST elevation or depression. QTc of 401 Verdana 4d Verdana 6Bd Critical Care Verdana 4d Verdana 4Il <Jameson Good MD - Last Filed: 04/25/25 03:34> Verdana 4d Verdana 4Bd Critical Care Time Verdana 4d Verdana 4d Critical Care Time: Verdana 4d No
--- NOTE | 2025-04-23 17:32 | HMH.EDGENADL ---
Discharge Plan Disposition Patient Disposition: Xfer [facility] Condition: Good Prescriptions Prescriptions: New azithromycin [Zithromax Z-Schuyler] 250 mg tablet See Rx Instructions .ROUTE .COMPLEX Qty: 6 0RF Rx Instructions: For 250 mg dose pack: take 500 mg today (day 1), then 250 mg for 4 days (days 2-5) No Action albuterol sulfate 2.5 mg /3 mL (0.083 %) solution for nebulization 2.5 mg inhalation Q4H PRN (Reason: dysnpea) ketotifen fumarate 0.025 % (0.035 %) drops 1 drp ophthalmic (eye) QID meloxicam 15 mg tablet 15 mg PO DAILY ondansetron HCl 4 mg tablet 4 mg PO Q6H PRN (Reason: nausea and vomiting) calcium carbonate 600 mg calcium (1,500 mg) tablet 600 mg PO DAILY methocarbamol 750 mg tablet 750 mg PO TID PRN (Reason: muscle spasm) pantoprazole 40 mg tablet,delayed release (DR/EC) 40 mg PO DAILY ferrous sulfate 325 mg (65 mg iron) tablet 325 mg PO DAILY docusate sodium 100 mg capsule 100 mg PO BID montelukast 10 mg tablet 10 mg PO DAILY cholecalciferol (vitamin D3) 125 mcg (5,000 unit) capsule 125 mcg PO DAILY escitalopram oxalate 10 mg tablet 10 mg PO DAILY lactulose 10 gram/15 mL solution 30 ml PO DAILY PRN (Reason: constipation) budesonide-formoterol 160-4.5 mcg/actuation HFA aerosol inhaler 2 puff inhalation BID levothyroxine 75 mcg capsule 75 mcg PO DAILY melatonin 5 mg capsule 5 mg PO QHS mirabegron [Myrbetriq] 25 mg tablet extended release 24 hr 25 mg PO DAILY potassium chloride [K-Tab] 20 mEq tablet extended release 20 meq PO BID Movantik 25 mg tablet 25 mg PO DAILY Rx Instructions: must be taken on empty stomach; no food 1 hr after or 2-3 hrs before dose tiotropium-olodaterol 2.5-2.5 mcg/actuation mist 2 puff inhalation DAILY acetaminophen 325 mg capsule 650 mg PO Q8HP PRN (Reason: Pain (Scale Score 1-3)) fluticasone propionate 50 mcg/actuation spray,suspension 1 spray intranasal DAILY Rx Instructions: administer into each nostril gabapentin 400 mg capsule 400 mg PO TID Qty: 90 5RF atorvastatin [Lipitor] 20 mg tablet 20 mg PO HS cetirizine 10 mg tablet 10 mg PO HS loperamide 2 mg tablet 2 mg PO Q8H PRN (Reason: Diarrhea) bumetanide 1 mg tablet 1 mg PO QAM polyethylene glycol 3350 [Miralax] 17 gram/dose powder 17 g PO DAILY cyclosporine [Restasis] 0.05 % dropperette 1 drp Eye-Both Q12H hydrocortisone 2 % gel 1 applic topical .q4 PRN (Reason: Skin Condition) triamcinolone acetonide 0.5 % cream 1 applic topical BID hydroxyzine HCl 25 mg tablet 25 mg PO Q8H PRN (Reason: Itching) Preparation H(pe, witch radha) 0.25-50 % gel 1 applic topical Q6HP PRN (Reason: pain and itching) Qty: 51 0RF Quviviq 25 mg tablet 25 mg PO HS Qty: 30 5RF oxycodone-acetaminophen 10-325 mg tablet 1 tab PO Q6H Qty: 120 0RF oxycodone 5 mg tablet 2.5 mg PO QID PRN (Reason: pain) Qty: 14 0RF Rx Instructions: may take in addition to oxcodone 10 mg QID for 1 week. amoxicillin-pot clavulanate 875-125 mg tablet 1 tab PO BID Qty: 20 0RF oxycodone 5 mg tablet 2.5 mg PO DAILY Qty: 14 0RF Rx Instructions: You may take an additional 2.5 mg of oxycodone as needed every 6 hours in addition to your normal dose of 10 mg every 6 hours. Do not exceed 12.5 mg every 6 hours. diclofenac sodium 1 % gel 1 ea TOPICAL BID Referrals Follow up/Referrals: Aníbal Martínez MD [Staff Physician, Cardiology] - See instructions Provider,MD Mojgan [Primary Care Provider, Medical] - See instructions Activity Restrictions/Add. Instructions Additional Instructions/Restrictions: (1) Clinical Impressions Clinical Impression: CHF (congestive heart failure), Bronchitis Instructions Patient Instructions: Acute Bronchitis, DI for Heart Failure Print Language Print Language: Bulgarian Discharge ED Provider: Jameson Good General Adult HPI <REYNA Fry - Last Filed: 04/23/25 18:57> General Chief complaint: Extremity Injury, Lower Stated complaint: Swelling Time Seen by Provider: 04/23/25 16:26 Mode of Arrival: EMS Source of Information: Patient Description of Symptoms (Recalled from ER Triage Doc. by RN): pt is here for ble swelling that has been going on for a week, pt seen here recently for broke arm and ribs, pt is alox3 at baseline History of Present Illness HPI narrative: Patient presents complaining of lower extremity edema and dyspnea. She does take Bumex 1 mg every day. She reports that she was recently diagnosed with left-sided rib fractures. MD complaint: Edema, dyspnea Onset (ago): day(s) Location: chest and lower extremity Radiation: extremity Severity: moderate Consistency: constant Relieving factors: rest Exacerbating factors: movement Associated symptoms: denies other symptoms Related Data Home Medications ?Medication ?Instructions ?Recorded ?Confirmed albuterol sulfate 2.5 mg/3 mL 2.5 mg inhalation Q4H PRN dysnpea 03/07/25 04/14/25 (0.083 %) solution for nebulization budesonide-formoterol HFA 160 2 puff inhalation BID 03/07/25 04/14/25 mcg-4.5 mcg/actuation aerosol inhaler calcium carbonate 600 mg PO DAILY 03/07/25 04/14/25 cholecalciferol (vitamin D3) 125 125 mcg PO DAILY 03/07/25 04/14/25 mcg (5,000 unit) capsule docusate sodium 100 mg capsule 100 mg PO BID 03/07/25 04/14/25 escitalopram oxalate 10 mg tablet 10 mg PO DAILY 03/07/25 04/14/25 ferrous sulfate 325 mg (65 mg 325 mg PO DAILY 03/07/25 04/14/25 iron) tablet ketotifen fumarate 0.025 % (0.035 1 drp ophthalmic (eye) QID 03/07/25 04/14/25 %) eye drops lactulose 10 gram/15 mL oral 30 ml PO DAILY PRN constipation 03/07/25 04/14/25 solution levothyroxine 75 mcg capsule 75 mcg PO DAILY 03/07/25 04/14/25 melatonin 5 mg capsule 5 mg PO QHS 03/07/25 04/14/25 meloxicam 15 mg tablet 15 mg PO DAILY 03/07/25 04/14/25 methocarbamol 750 mg tablet 750 mg PO TID PRN muscle spasm 03/07/25 04/14/25 mirabegron 25 mg tablet,extended 25 mg PO DAILY 03/07/25 04/14/25 release 24 hr (Myrbetriq) montelukast 10 mg tablet 10 mg PO DAILY 03/07/25 04/14/25 naloxegol 25 mg tablet (Movantik) 25 mg PO DAILY 03/07/25 04/14/25 ondansetron HCl 4 mg tablet 4 mg PO Q6H PRN nausea and vomiting 03/07/25 04/14/25 pantoprazole 40 mg tablet,delayed 40 mg PO DAILY 03/07/25 04/14/25 release potassium chloride 20 mEq 20 meq PO BID 03/07/25 04/14/25 tablet,extended release (K-Tab) tiotropium 2.5 mcg-olodaterol 2.5 2 puff inhalation DAILY 03/07/25 04/14/25 mcg/actuation mist for inhalation fluticasone propionate 50 1 spray intranasal DAILY 04/05/25 04/14/25 mcg/actuation nasal spray,suspension diclofenac sodium 1 % topical gel 1 ea topical BID 04/06/25 04/14/25 acetaminophen 325 mg capsule 650 mg PO Q8HP PRN Pain (Scale 04/08/25 04/14/25 Score 1-3) atorvastatin 20 mg tablet (Lipitor) 20 mg PO HS 04/08/25 04/14/25 bumetanide 1 mg tablet 1 mg PO QAM 04/08/25 04/14/25 cetirizine 10 mg tablet 10 mg PO HS 04/08/25 04/14/25 cyclosporine 0.05 % eye drops in a 1 drp Eye-Both Q12H 04/08/25 04/14/25 dropperette (Restasis) hydrocortisone 2 % topical gel 1 applic topical .q4 PRN Skin 04/08/25 04/14/25 Condition hydroxyzine HCl 25 mg tablet 25 mg PO Q8H PRN Itching 04/08/25 04/14/25 loperamide 2 mg tablet 2 mg PO Q8H PRN Diarrhea 04/08/25 04/14/25 polyethylene glycol 3350 17 17 g PO DAILY 04/08/25 04/14/25 gram/dose oral powder (Miralax) triamcinolone acetonide 0.5 % 1 applic topical BID 04/08/25 04/14/25 topical cream Previous Rx's ?Medication ?Instructions ?Recorded daridorexant 25 mg tablet (Quviviq) 25 mg PO HS #30 tabs 03/08/25 gabapentin 400 mg capsule 400 mg PO TID #90 caps 04/05/25 phenylephrine-witch radha 0.25 1 applic topical Q6HP PRN pain and 04/08/25 %-50 % topical gel (Preparation H itching #51 grams (phenylephrine,witch radha)) oxycodone-acetaminophen 10 mg-325 1 tab PO Q6H #120 tabs 04/15/25 mg tablet amoxicillin 875 mg-potassium 1 tab PO BID #20 tabs 04/20/25 clavulanate 125 mg tablet oxycodone 5 mg tablet 2.5 mg (1/2 x 5 mg) PO DAILY #14 04/20/25 tabs oxycodone 5 mg tablet 2.5 mg (1/2 x 5 mg) PO QID PRN 04/20/25 pain #14 tabs azithromycin 250 mg tablet See Rx Instructions PO .COMPLEX #6 04/23/25 (Zithromax Z-Schuyler) tabs Allergies Allergy/AdvReac Type Severity Reaction Status Date / Time ciprofloxacin Allergy Severe hives Verified 04/14/25 14:15 levofloxacin Allergy Severe hives Verified 04/14/25 14:15 phenazopyridine (From Allergy Severe Hives Verified 04/14/25 14:15 Pyridium) tetracycline Allergy Severe Rash Verified 04/14/25 14:15 Adhesive bandage Allergy Severe rash Uncoded 04/14/25 14:15 [facility] <REYNA Fry - Last Filed: 04/23/25 18:57> [facility] Disclaimer: The information contained in this section may have been updated after the patient was seen, as this information can be updated by other users. Medical History Peripheral neuropathy Thrombocytopenia (HFpEF) heart failure with preserved ejection fraction Splenomegaly Metabolic dysfunction-associated steatohepatitis (MASH) Coronary artery disease Overactive bladder Abdominal wall hernia Esophageal varices Congestive heart failure Hepatitis C COPD (chronic obstructive pulmonary disease) Alteration in physical mobility Low back pain Polyneuropathy Anxiety Cirrhosis Osteoarthritis Insomnia GERD (gastroesophageal reflux disease) Anemia Hypertension Vitamin D deficiency Depression Allergic rhinitis Hypothyroidism Constipation Surgical History History of left knee replacement History of fusion of thoracolumbar spine History of colon resection Previous back surgery History of section Status post right knee replacement History of cholecystectomy H/O: hysterectomy Social History Smoking Status: Former smoker alcohol intake: never current occupational status: retired Travel in the last 8 weeks?: None housing: [facility] marital status: Have you lived/traveled outside [place] in past 30 days?: No Contact w/someone who lives/traveled outside [place] past 30 days?: No Exposure to someone with infectious disease in past 14 days?: No Do you have a fever (greater than 100.4 F or 38 C)?: No Have you tested positive for COVID-19?: No Exposed to someone with COVID-19 in past 14 days?: No Do you have a sore throat?: No Do you have a cough?: No Do you have any weakness?: No Do you have any diarrhea?: No Are you experiencing any unusual bleeding?: No Do you have any muscle aches/pain?: No Do you have any abdominal pain?: No Are you experiencing loss of taste or smell?: No Other Medical History Have you received the Pneumonia Vaccine: Yes (10/01/24) <REYNA Fry - Last Filed: 04/23/25 18:57> ROS Obtained: Yes Systems reviewed as appropriate & no additional complaints except as documented Physical Exam <REYNA Fry - Last Filed: 04/23/25 18:57> General General appearance: alert and in no apparent distress Head Head exam: atraumatic and normocephalic Eye Eye exam: Present normal appearance and EOMI Chest Chest inspection: Present symmetric chest wall rise Respiratory Respiratory exam: Present normal lung sounds bilaterally; Absent wheezes or stridor Cardiovascular Cardiovascular exam: Present regular rate and normal rhythm; Absent systolic murmur Extremities Exam Extremities exam: Present other (Pedal edema, dorsalis pedis palpable and equal) Neurological Exam Neurological exam: Present alert and oriented X3 Psychiatric Psychiatric exam: Present normal affect and normal mood Skin Skin exam: Present warm, dry and intact Medical Decision Making <REYNA Fry - Last Filed: 04/23/25 18:57> Medical Records Screening: Per USPSTF and CDC recommendations, given the prevalence of disease in our region, it is our hospital?s policy to screen for HIV and viral Hepatitis for all patients aged 18 and over and those with ongoing risk factors. Tim Inquiry Pt receiving controlled substance: No Vital Signs: 04/23/25 16:20 04/23/25 16:30 04/23/25 17:00 Temperature 98.1 F Temperature Source Oral Pulse Rate 73 82 Pulse Rate [Left Radial] 80 Respiratory Rate 20 Blood Pressure 144/74 H Blood Pressure [Right Arm] 141/76 H Blood Pressure Mean [Right Arm] 97 02 Sat by Pulse Oximetry 95 98 98 Oxygen Delivery Method Room Air Nasal Cannula Oxygen Flow Rate (LPM) 2 04/23/25 17:22 04/23/25 17:30 04/23/25 18:00 Temperature Temperature Source Pulse Rate 80 75 75 Pulse Rate [Left Radial] Respiratory Rate Blood Pressure 141/82 H 149/75 H 131/68 Blood Pressure [Right Arm] Blood Pressure Mean [Right Arm] 02 Sat by Pulse Oximetry 97 99 98 Oxygen Delivery Method Nasal Cannula Nasal Cannula Oxygen Flow Rate (LPM) 2 2 04/23/25 18:31 04/23/25 18:57 04/23/25 19:00 Temperature 98.1 F Temperature Source Pulse Rate 82 81 79 Pulse Rate [Left Radial] Respiratory Rate 20 Blood Pressure 154/79 H 154/79 H 147/77 H Blood Pressure [Right Arm] Blood Pressure Mean [Right Arm] 02 Sat by Pulse Oximetry 96 96 Oxygen Delivery Method Room Air Oxygen Flow Rate (LPM) 04/23/25 19:30 04/23/25 20:00 Temperature Temperature Source Pulse Rate 77 82 Pulse Rate [Left Radial] Respiratory Rate Blood Pressure 152/78 H 148/74 H Blood Pressure [Right Arm] Blood Pressure Mean [Right Arm] 02 Sat by Pulse Oximetry 97 98 Oxygen Delivery Method Oxygen Flow Rate (LPM) Lab Data Lab Results 04/23/25 17:05: WBC 5.4, RBC 3.13 L, Hgb 9.1 L, Hct 29.8 L, MCV 95.2, MCH 29.1, MCHC 30.5 L, RDW 15.8, Plt Count 88 L, MPV 10.1, Neut % (Auto) 66.3, Lymph % (Auto) 15.6, Stanly % (Auto) 8.0, Eos % (Auto) 8.6, Baso % (Auto) 1.1, Neut # (Auto) 3.6, Lymph # (Auto) 0.8, Stanly # (Auto) 0.4, Eos # (Auto) 0.5 H, Baso # (Auto) 0.1, Sodium 136, Potassium 3.8, Chloride 98, Carbon Dioxide 36 H, Anion Gap 5.8, BUN 12, Creatinine 0.90, Estimated Creat Clear 81, Estimated GFR 62, Est GFR ( Amer) 75, Glucose 92, Calcium 8.2 L, Total Bilirubin 0.5, AST 35, ALT 16, Alkaline Phosphatase 154 H, Troponin I < 0.01, NT-Pro-B Natriuret Pep 206 H, Total Protein 6.4, Albumin 3.2 L, Globulin 3.2, Albumin/Globulin Ratio 1.0 L 04/23/25 17:05 04/23/25 17:05 Orders (Tests/Meds): ED MEDICATIONS Discontinued Medications Generic Name Dose Route Start Last Admin Trade Name Freq PRN Reason Stop Dose Admin Albuterol Sulfate 2.5 mg 04/23/25 16:35 04/23/25 17:20 Albuterol 0.083% 2.5 Mg/3 Ml Neb IH 04/23/25 16:36 2.5 mg ONCE ONE Administration Sodium Chloride 10 ml 04/23/25 16:35 Sodium Chloride 0.9% 10ml Flush Syringe IV 05/23/25 16:34 NEEDED PRN Maintain IV Site ORDERS Category Date Time Status Chest XR -- portable [XR chest portable] Stat Exams 04/23/25 16:35 Completed BNP [NT Pro Brain Natriuretic Pep.] Stat Lab 04/23/25 17:05 Completed CBC w/Auto Diff [Complete Blood Count Auto Diff] Stat Lab 04/23/25 17:05 Completed CMP [Comprehensive Metabolic Panel] Stat Lab 04/23/25 17:05 Completed Trop I [Troponin I] Stat Lab 04/23/25 17:05 Completed Medical Decision Narrative: In summary patient is a 69-year-old female who presents the emergency department for evaluation of edema, dyspnea. Patient is hemodynamically stable upon arrival, afebrile. Pedal edema on exam, wheezing on pulmonary exam. Differential diagnosis includes bronchitis, pneumonia, CHF exacerbation. Patient had CTA ches tnegative for PE twice this month. Initial workup will be conducted with hematologic labs, chest x-ray, BNP. Initial inventions include albuterol neb. Initial workup reviewed by me slight increase in pulmonary edema. Upon repeat evaluation patient resting comfortably, not hypoxic. Given this patient is appropriate for discharge back to the nursing facility with instructions to follow-up with cardiology this week. Zithromax added to Augmentin she was prescribed 3 days ago.. <Jameson Good MD - Last Filed: 04/25/25 03:34> Vital Signs: 04/23/25 16:20 04/23/25 16:30 04/23/25 17:00 Temperature 98.1 F Temperature Source Oral Pulse Rate 73 82 Pulse Rate [Left Radial] 80 Respiratory Rate 20 Blood Pressure 144/74 H Blood Pressure [Right Arm] 141/76 H Blood Pressure Mean [Right Arm] 97 02 Sat by Pulse Oximetry 95 98 98 Oxygen Delivery Method Room Air Nasal Cannula Oxygen Flow Rate (LPM) 2 04/23/25 17:22 04/23/25 17:30 04/23/25 18:00 Temperature Temperature Source Pulse Rate 80 75 75 Pulse Rate [Left Radial] Respiratory Rate Blood Pressure 141/82 H 149/75 H 131/68 Blood Pressure [Right Arm] Blood Pressure Mean [Right Arm] 02 Sat by Pulse Oximetry 97 99 98 Oxygen Delivery Method Nasal Cannula Nasal Cannula Oxygen Flow Rate (LPM) 2 2 04/23/25 18:31 04/23/25 18:57 04/23/25 19:00 Temperature 98.1 F Temperature Source Pulse Rate 82 81 79 Pulse Rate [Left Radial] Respiratory Rate 20 Blood Pressure 154/79 H 154/79 H 147/77 H Blood Pressure [Right Arm] Blood Pressure Mean [Right Arm] 02 Sat by Pulse Oximetry 96 96 Oxygen Delivery Method Room Air Oxygen Flow Rate (LPM) 04/23/25 19:30 04/23/25 20:00 Temperature Temperature Source Pulse Rate 77 82 Pulse Rate [Left Radial] Respiratory Rate Blood Pressure 152/78 H 148/74 H Blood Pressure [Right Arm] Blood Pressure Mean [Right Arm] 02 Sat by Pulse Oximetry 97 98 Oxygen Delivery Method Oxygen Flow Rate (LPM) Lab Data Lab Results 04/23/25 17:05: WBC 5.4, RBC 3.13 L, Hgb 9.1 L, Hct 29.8 L, MCV 95.2, MCH 29.1, MCHC 30.5 L, RDW 15.8, Plt Count 88 L, MPV 10.1, Neut % (Auto) 66.3, Lymph % (Auto) 15.6, Stanly % (Auto) 8.0, Eos % (Auto) 8.6, Baso % (Auto) 1.1, Neut # (Auto) 3.6, Lymph # (Auto) 0.8, Stanly # (Auto) 0.4, Eos # (Auto) 0.5 H, Baso # (Auto) 0.1, Sodium 136, Potassium 3.8, Chloride 98, Carbon Dioxide 36 H, Anion Gap 5.8, BUN 12, Creatinine 0.90, Estimated Creat Clear 81, Estimated GFR 62, Est GFR ( Amer) 75, Glucose 92, Calcium 8.2 L, Total Bilirubin 0.5, AST 35, ALT 16, Alkaline Phosphatase 154 H, Troponin I < 0.01, NT-Pro-B Natriuret Pep 206 H, Total Protein 6.4, Albumin 3.2 L, Globulin 3.2, Albumin/Globulin Ratio 1.0 L Orders (Tests/Meds): ED MEDICATIONS Discontinued Medications Generic Name Dose Route Start Last Admin Trade Name Freq PRN Reason Stop Dose Admin Albuterol Sulfate 2.5 mg 04/23/25 16:35 04/23/25 17:20 Albuterol 0.083% 2.5 Mg/3 Ml Neb IH 04/23/25 16:36 2.5 mg ONCE ONE Administration Sodium Chloride 10 ml 04/23/25 16:35 Sodium Chloride 0.9% 10ml Flush Syringe IV 05/23/25 16:34 NEEDED PRN Maintain IV Site ORDERS Category Date Time Status Chest XR -- portable [XR chest portable] Stat Exams 04/23/25 16:35 Completed BNP [NT Pro Brain Natriuretic Pep.] Stat Lab 04/23/25 17:05 Completed CBC w/Auto Diff [Complete Blood Count Auto Diff] Stat Lab 04/23/25 17:05 Completed CMP [Comprehensive Metabolic Panel] Stat Lab 04/23/25 17:05 Completed Trop I [Troponin I] Stat Lab 04/23/25 17:05 Completed ECG Data Tracing #1: I reviewed this ECG and interpreted as documented below: Normal sinus rhythm. No ST elevation or depression. QTc of 401 Critical Care <Jameson Good MD - Last Filed: 04/25/25 03:34> Critical Care Time Critical Care Time: No 1: You were seen for CHF/ slightly increased pulmonary edema. You were given an additional antibiotics for bronchitis. 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
[2025-04-23 17:38] LABS: Albumin Level 3.2 g/dl (3.5-5.0); Chloride 98 mmol/L (98-107)
[2025-04-23 17:39] LABS: Potassium 3.8 mmoL/L (3.5-5.1); Sodium 136 mmol/L (136-145)
[2025-04-23 17:41] LABS: Blood Urea Nitrogen 12 mg/dl (7-17); Creatinine Clearance Estimated 81 mL/min (50-200); Creatinine,Serum 0.90 mg/dl (0.52-1.04); Estimated Glomerular Filt Rate 62 ml/min (>60); GFR (African American) 75 ML/MIN (>60)
[2025-04-23 17:42] LABS: Alanine Aminotransferase 16 U/L (12-78); Albumin/Globulin Ratio 1.0 (1.1-1.8); Alkaline Phosphatase 154 U/L (38-126); Anion Gap 5.8 mEq/L (5-15); Aspartate Amino Transferase 35 U/L (14-36); Bilirubin,Total 0.5 mg/dl (0.2-1.3); Calcium 8.2 mg/dl (8.4-10.2); Carbon Dioxide 36 mmol/L (22.0-30.0); Globulin 3.2 g/dL (1.3-3.2); Glucose 92 mg/dl (74-100); Total Protein,Serum 6.4 g/dl (6.3-8.2)
[2025-04-23 17:51] LABS: NT Pro Brain Natriuretic Pep. 206 pg/mL (0-125)
[2025-04-23 18:03] LABS: Troponin I < 0.01 ng/ml (0.00-0.034)
== END 2025-04-23 21:43 ==
PROVIDERS: Physician Assistant; Emergency Provider Student in an Organized Health Care Education/Training Program
DX: R06.02 Shortness of breath (principal); J20.9 Acute bronchitis, unspecified; I11.0 Hypertensive heart disease with heart failure; I50.30 Unspecified diastolic (congestive) heart failure
CPT/HCPCS: 71045; 80053; 83880; 84484; 85025; 93005; 99284; 99285

== ENCOUNTER 2025-05-02 08:12 | Outpatient (CLI) | payer MEDICARE, MEDICAID, SELFPAY ==
[2025-05-02 08:26] LABS: Hematocrit 28.4 % (37.0-47.0); Hemoglobin 8.5 g/dL (12.2-16.2); Immature Granulocytes % 0 %; Mean Corpuscular HGB Conc 29.9 g/dL (31.8-35.4); Mean Corpuscular Hemoglobin 28.7 pg (27.0-31.2); Mean Corpuscular Volume 95.9 fl (81-99); Nucleated Red Blood Cells % 0 %; Platelet Count 65 K/mm3 (142-424); Red Blood Count 2.96 M/mm3 (4.20-5.40); Red Cell Distribution Width-SD 54.0 fL; White Blood Count 3.1 K/mm3 (4.8-10.8)
[2025-05-02 09:01] LABS: Chloride 97 mmol/L (98-107); Sodium 134 mmol/L (136-145)
[2025-05-02 09:02] LABS: Potassium 3.7 mmoL/L (3.5-5.1)
[2025-05-02 09:04] LABS: Blood Urea Nitrogen 12 mg/dl (7-17); Creatinine,Serum 1.00 mg/dl (0.52-1.04); Estimated Glomerular Filt Rate 55 ml/min (>60); GFR (African American) 66 ML/MIN (>60)
[2025-05-02 09:05] LABS: Anion Gap 2.7 mEq/L (5-15); Calcium 8.1 mg/dl (8.4-10.2); Carbon Dioxide 38 mmol/L (22.0-30.0); Glucose 111 mg/dl (74-100)
== END 2025-05-02 23:59 | disposition home or self-care (01) ==
LOC: LAB.DROPOF 08:13
PROVIDERS: PCP Family Medicine; Visit Provider Family Medicine
DX: I11.0 Hypertensive heart disease with heart failure (principal); I50.9 Heart failure, unspecified; D50.9 Iron deficiency anemia, unspecified
CPT/HCPCS: 36415; 80048; 85025

== ENCOUNTER 2025-06-10 08:38 | Outpatient (CLI) | payer MEDICARE, MEDICAID, SELFPAY | END 2025-06-10 23:59 | disposition home or self-care (01) | LOC: LAB.DROPOF 08:38 | PROVIDERS: PCP Family Medicine; Visit Provider Family Medicine | DX: E87.1 Hypo-osmolality and hyponatremia (principal) | CPT/HCPCS: 87070; 87077; 87186; 87205 ==

== ENCOUNTER 2025-06-13 09:07 | Outpatient (CLI) | payer MEDICARE, MEDICAID, SELFPAY ==
[2025-06-13 09:55] LABS: Anion Gap 7.6 mEq/L (5-15); Blood Urea Nitrogen 11 mg/dl (7-17); Calcium 9.1 mg/dl (8.4-10.2); Carbon Dioxide 27 mmol/L (22.0-30.0); Chloride 99 mmol/L (98-107); Creatinine,Serum 0.80 mg/dl (0.52-1.04); Estimated Glomerular Filt Rate 71 ml/min (>60); GFR (African American) 85 ML/MIN (>60); Glucose 81 mg/dl (74-100); Potassium 4.6 mmoL/L (3.5-5.1); Sodium 129 mmol/L (136-145)
== END 2025-06-13 23:59 | disposition home or self-care (01) ==
LOC: LAB.DROPOF 09:07
PROVIDERS: PCP Family Medicine; Visit Provider Nurse Practitioner Family
DX: E87.1 Hypo-osmolality and hyponatremia (principal)
CPT/HCPCS: 36415; 80048

== ENCOUNTER 2025-06-15 11:03 | Outpatient (CLI) | payer MEDICARE, MEDICAID, SELFPAY ==
[2025-06-15 11:23] LABS: Hematocrit 30.1 % (37.0-47.0); Hemoglobin 9.4 g/dL (12.2-16.2); Immature Granulocytes % 0.6 %; Mean Corpuscular HGB Conc 31.2 g/dL (31.8-35.4); Mean Corpuscular Hemoglobin 28.1 pg (27.0-31.2); Mean Corpuscular Volume 90.1 fl (81-99); Nucleated Red Blood Cells % 0 %; Platelet Count 103 K/mm3 (142-424); Red Blood Count 3.34 M/mm3 (4.20-5.40); Red Cell Distribution Width-SD 45.2 fL; White Blood Count 4.7 K/mm3 (4.8-10.8)
== END 2025-06-15 23:59 | disposition home or self-care (01) ==
LOC: LAB.DROPOF 11:04
PROVIDERS: PCP Family Medicine; Visit Provider Family Medicine
DX: J15.1 Pneumonia due to Pseudomonas (principal)
CPT/HCPCS: 36415; 85025

== ENCOUNTER 2025-06-22 08:35 | Outpatient (CLI) | payer MEDICARE, MEDICAID, SELFPAY ==
[2025-06-22 09:48] LABS: Anion Gap 4.5 mEq/L (5-15); Blood Urea Nitrogen 11 mg/dl (7-17); Calcium 8.2 mg/dl (8.4-10.2); Carbon Dioxide 33 mmol/L (22.0-30.0); Chloride 104 mmol/L (98-107); Creatinine,Serum 0.80 mg/dl (0.52-1.04); Estimated Glomerular Filt Rate 71 ml/min (>60); GFR (African American) 85 ML/MIN (>60); Glucose 81 mg/dl (74-100); Potassium 3.5 mmoL/L (3.5-5.1); Sodium 138 mmol/L (136-145)
== END 2025-06-22 23:59 | disposition home or self-care (01) ==
LOC: LAB.DROPOF 08:35
PROVIDERS: PCP Family Medicine; Visit Provider Family Medicine
DX: R60.9 Edema, unspecified (principal)
CPT/HCPCS: 36415; 80048

== ENCOUNTER 2025-06-24 08:54 | Outpatient (CLI) | payer MEDICARE, MEDICAID, SELFPAY ==
[2025-06-24 09:55] LABS: Anion Gap 6.5 mEq/L (5-15); Blood Urea Nitrogen 12 mg/dl (7-17); Calcium 8.1 mg/dl (8.4-10.2); Carbon Dioxide 35 mmol/L (22.0-30.0); Chloride 99 mmol/L (98-107); Creatinine,Serum 0.90 mg/dl (0.52-1.04); Estimated Glomerular Filt Rate 62 ml/min (>60); GFR (African American) 74 ML/MIN (>60); Glucose 78 mg/dl (74-100); Potassium 3.5 mmoL/L (3.5-5.1); Sodium 137 mmol/L (136-145)
== END 2025-06-24 23:59 | disposition home or self-care (01) ==
LOC: LAB.DROPOF 08:55
PROVIDERS: PCP Family Medicine; Visit Provider Family Medicine
DX: R60.9 Edema, unspecified (principal)
CPT/HCPCS: 36415; 80048